=== PATIENT | female | born 1985 | race African-American/Black ===

== ENCOUNTER → 2023-03-31 | Outpatient (CLI) | payer SELFPAY ==
[2023-03-31 20:45] LABS: Basophils # (A) 0.05 X 10*3/uL (0.00-0.10); Basophils % (A) 0.9 %; Eosinophils # (A) 0.18 X 10*3/uL (0.04-0.35); Eosinophils % (A) 3.1 %; HCT 36.3 % (37.2-46.3); HGB 11.9 d/dL (12.0-15.0); Lymphocytes # (A) 2.57 X 10*3/uL (0.90-5.00); MCH 29.8 pg (27.0-32.0); MCHC 32.8 d/dL (32.0-37.0); MCV 90.8 FL (80.0-97.0); Mean Platelet Volume 10.1 FL (9.5-12.2); Monocytes # (A) 0.62 X 10*3/uL (0.20-1.00); Monocytes % (A) 10.6 %; NRBC Per 100 WBC 0 X 10*3/uL (0.00-0.01); Neutrophils # (A) 2.39 X 10*3/uL (1.80-7.70); Neutrophils % (A) 40.9 %; Platelet Count 330 X 10*3/uL (140-440); RDW 13.8 % (11.5-14.5); WBC 5.84 X 10*3/uL (4.50-10.00)
[2023-04-01 05:43] LABS: Appearance,Urine Clear (Clear); Bilirubin,Urine Negative (Negative); Blood,Urine Moderate (Negative); Color,Urine Yellow (Yellow); Ketones,Urine Negative (Negative); Nitrite,Urine Negative (Negative); Specific Gravity,Urine 1.021 (1.001-1.030); Urobilinogen,Urine 0.2 E.U./DL
[2023-04-01 05:45] LABS: Blood Urea Nitrogen 15.2 mg/dL (9.0-27.0); Calcium 9.2 mg/dL (8.7-10.3); Carbon Dioxide 24.3 mmol/L (21.6-31.8); Chloride 104 mmol/L (96-109); Glucose 69 mg/dL (70-110); Potassium 4.7 mmol/L (3.5-5.5); Sodium 138 mmol/L (135-145)
[2023-04-01 05:51] LABS: Bacteria,Urine Trace
== END | disposition home or self-care (01) ==
LOC: LABPAT 16:09
PROVIDERS: ATTEND Urology
DX: Z01.812 Encounter for preprocedural laboratory examination (principal); N13.30 Unspecified hydronephrosis; R31.29 Other microscopic hematuria
CPT/HCPCS: 36415; 80048; 81001; 85025

== ENCOUNTER 2023-04-06 08:34 | Day surgery (SDC) | payer SELFPAY ==
--- NOTE | 2023-04-05 16:52 | P.HPIHPCON ---
History of Present Illness H&P Date: 04/05/23 Chief Complaint: Right-sided hydronephrosis This is a 37-year-old female with history of right-sided hydronephrosis secondary to a cystic right-sided ovarian lesion. She underwent a right-sided oophorectomy, but had a persistent hydronephrosis postoperatively subsequently u nderwent stent insertion at an outside hospital. Discussed with her at this time recommend proceeding with right-sided retrograde pyelogram with possible stent removal versus exchange based on the operative findings. Discussed with her if there his evidence of persistent obstruction and she will need a right- sided stent exchange, but if there is resolution of the obstruction then we'll remove the stent.The risk and benefit of the rationale doing surgery was discussed in detail Consent for Procedure: I have explained the operation/procedure to the patient, including the risks, benefits, side effects, alternative therapies (including not receiving the proposed treatment or service), the likelihood of the patient achieving his/her goals, and potential recuperation problems for the procedure/sedation/analgesia, as well as any blood products, if indicated. I also explained to the patient the risks, benefits and side effects of the alternatives, as well as the risks related to not receiving the proposed procedure, care, treatment, or services. Past Medical History Past Medical History: No Reported History Additional Past Medical History / Comment(s): KIDNEY STONES History of Any Multi-Drug Resistant Organisms: None Reported Past Surgical History: Hysterectomy Additional Past Surgical History / Comment(s): CYSTO RIGHT STENT. PARTIAL HYSTERECTOMY Past Anesthesia/Blood Transfusion Reactions: No Reported Reaction Past Psychological History: No Psychological Hx Reported Smoking Status: Current every day smoker Past Alcohol Use History: Occasional Additional Past Alcohol Use History / Comment(s): SMOKES 4-5 CIG/DAY, FOR ABOUT 15 YEAR. Past Drug Use History: Marijuana - Past Family History Mother Family Medical History: No Reported History Medications and Allergies Home Medications Medication Instructions Recorded Confirmed Type Tamsulosin HCl [Flomax] 0.4 mg PO DAILY 04/01/23 04/01/23 History Sulfamethox-Tmp 800-160Mg [Bactrim 1 tab PO Q12HR 04/05/23 04/05/23 History DS 800-160 mg] Allergies Allergy/AdvReac Type Severity Reaction Status Date / Time Penicillins AdvReac Unknown Verified 04/01/23 15:46 Childhood Surgical - Exam - General no distress, moderate pain - Eyes normal ocular movement, no pale - ENT normal nares, normal mucosa - Respiratory normal expansion, normal respiratory effort - Abdomen Abdomen: soft, non tender - Psychiatric oriented to time, oriented to person, oriented to place Assessment and Plan Assessment: OR for cystoscopy, right retrograde pyelogram, possible stent removal versus exchange
[~2023-04-06 08:34] MED LIST: CIPROFLOXACIN/DEXTROSE PMX 400 MG in DEXTROSE/WATER 1 200ML.BAG IVPB PRN; DEXAMETHASONE SOD PHOSPHATE 4 MG/ML 1 ML VIAL IV ONE; HYDROmorphone 0.5 MG/0.5 ML SYRINGE IVP PRN; LACTATED RINGERS 1,000 ML IV SCH; LIDOCAINE 1% (10MG/ML) FOR IV START INTRADERMA PRN; ONDANSETRON 4 MG/2 ML VIAL IVP ONE; droPERidol 5 MG/2 ML VIAL IVP ONE
[2023-04-06] MEDS ORDERED: fentaNYL (PF) 50 MCG/ML 2 ML AMP ONE (09:35)
[2023-04-06] MEDS ORDERED: LIDOCAINE 1% INJ 10MG/ML (20 ML MDV) ONE (09:35)
[2023-04-06] MEDS ORDERED: PROPOFOL 10 MG/ML 20 ML VIAL IV ONE (09:35)
[2023-04-06] MEDS ORDERED: MIDAZOLAM 2 MG/2 ML VIAL ONE (09:35)
[2023-04-06] MEDS ORDERED: IOPAMIDOL-370 50ML BTL MISCELLANE ONE (09:40)
[2023-04-06 10:36] VITALS: TEMP 97.1
--- NOTE | 2023-04-06 10:40 | P.OP ---
Date of Procedure: 04/06/23 Preoperative Diagnosis: Right hydronephrosis Postoperative Diagnosis: Same Procedure(s) Performed: Cystoscopy, right ureteroscopy, retrograde pyelogram and stent exchange Implants: 6-[place] by 24 cm stent in the right ureter Anesthesia: MARCEL Surgeon: Oniel Tony Estimated Blood Loss (ml): 1 Pathology: none sent Condition: stable Disposition: PACU Indications for Procedure: This is a 37-year-old female with history of right-sided hydronephrosis seco ndary to a cystic right-sided ovarian lesion. She underwent a right-sided oophorectomy, but had a persistent hydronephrosis postoperatively subsequently underwent stent insertion at an outside hospital. Discussed with her at this time recommend proceeding with right-sided retrograde pyelogram with possible stent removal versus exchange based on the operative findings. Discussed with her if there his evidence of persistent obstruction and she will need a right- sided stent exchange, but if there is resolution of the obstruction then we'll remove the stent.The risk and benefit of the rationale doing surgery was discussed in detail Description of Procedure: Patient brought to the operating room, general anesthesia was induced. She was prepped and draped in sterile fashion and placed in dorsal lithotomy position. Cystoscopy fitted with a 21-[place] sheath was inserted per urethra, cystoscopy was performed which showed no abnormality within the bladder. At this time the stent was removed intact. Next a 6-[place] open-ended catheter was advanced through the scope and the right ureteral orifice was intubated using a 6-[place] open-ended catheter, retrograde pyelogram was performed which showed a slight narrowing at the distal ureter but no filling defect or hydronephrosis was appreciated. At this time the catheter was removed and delayed images was obtained. At this point no contrast was draining past the distal ureter approximately 3-4 cm from the UVJ, multiple delayed images were obtained but no contrast was draining and on evaluating the ureteral orifice there was no reflux of urine. At this time a semirigid ureteroscope was advanced per urethra and advanced up the right ureteral orifice, the scope was advanced past the area where there was no drainage the ureter was patent and there was no intrinsic narrowing, the scope was advanced to the mid ureter which showed no areas of narrowing or abnormality, pullback ureteroscopy was performed showed no abnormality within the ureter or injury to the ureter. At this time the cystoscope was reinserted and the retrograde was repeated again which showed similar finding no drainage of contrast past the distal ureter approximately 3-4 cm from the UVJ, this is concerning for either an aperistaltic component of the ureter or extrinsic compression. At this time a wire was advanced through. A u reteral stent was passed over the wire, the proximal curl was visualized on fluoroscopy and distal curl was visualized and cystoscope. Hydronephrotic drip was seen from the stent. The bladder was emptied at the end of the case. At this time we will discuss the patient with the patient the option of doing a ureteral reimplant to address her ureteral obstruction
--- NOTE | 2023-04-06 10:43 | FL ---
Intraoperative/procedural fluoroscopic services were provided. Total fluoroscopy time is 78.9 seconds with a total of 10 submitted images to PACS. Please see the operative/procedural note for further de tails. DAP: 0.3-73 mGym2
[2023-04-06 11:17] VITALS: RESP 20
[2023-04-06] MEDS ORDERED: HYDROcodone/APAP 7.5-325MG 1 EACH TAB ONE (11:21)
[2023-04-06] MEDS ORDERED: HYDROcodone/APAP 7.5-325MG 1 EACH TAB PO ONE (11:23)
[2023-04-06 11:37] VITALS: BP 117/79; PULSE 72
== END 2023-04-06 12:58 | disposition home or self-care (01) ==
LOC: OR 08:34
PROVIDERS: ATTEND Urology
DX: N13.30 Unspecified hydronephrosis (principal); F17.210 Nicotine dependence, cigarettes, uncomplicated; F10.90 Alcohol use, unspecified, uncomplicated; Z79.899 Other long term (current) drug therapy; Z80.0 Family history of malignant neoplasm of digestive organs; Z90.710 Acquired absence of both cervix and uterus; Z98.890 Other specified postprocedural states
CPT/HCPCS: 81025; 74420; 52332; C2625; C1758; C1769; J2250; J1100; J2405; J2001; J3010; J0744; J2704; Q9967

== ENCOUNTER 2023-04-23 00:17 | Emergency (ER) | payer OTHER ==
[2023-04-23] MEDS ORDERED: ONDANSETRON 4 MG/2 ML VIAL IVP STA (01:31)
[2023-04-23] MEDS ORDERED: KETOROLAC 15 MG/ML 1 ML VIAL IVP STA (01:31)
[2023-04-23] MEDS ORDERED: SODIUM CHLORIDE 0.9% 1,000 ML IV ONE (01:31)
[2023-04-23 03:15] LABS: ALT 28 U/L (4-34); AST 26 U/L (14-36); African American GFR (CKD) 88 (>60 ml/min/1.73 sqM); Albumin 3.5 g/dL (3.5-5.0); Alkaline Phosphatase 93 U/L (38-126); Anion Gap 9 mmol/L; Appearance,Urine Clear (Clear); Bilirubin,Urine Negative (Negative); Blood Urea Nitrogen 14 mg/dL (7-17); Blood,Urine Large (Negative); Calcium 8.7 mg/dL (8.4-10.2); Carbon Dioxide 17 mmol/L (22-30); Chloride 111 mmol/L (98-107); Color,Urine Light Yellow; Glucose 89 mg/dL (74-99); Glucose,Urine (UA) Negative (Negative); Ketones,Urine Negative (Negative); Leukocyte Esterase,Urine Large (Negative); Mucus,Urine Rare /hpf; Nitrite,Urine Negative (Negative); Non-African American GFR(CKD) 76 (>60 ml/min/1.73 sqM); PH, Urine 5.5 (5.0-8.0); Potassium 4.6 mmol/L (3.5-5.1); Protein,Urine 1+ (Negative); RBC,Urine >182 /hpf (0-5); Sodium 137 mmol/L (137-145); Specific Gravity,Urine 1.021 (1.001-1.035); Squamous Epithelial Cell,Urine 2 /hpf (0-4); Total Bilirubin 0.3 mg/dL (0.2-1.3); Total Protein 6.4 g/dL (6.3-8.2); Urobilinogen,Urine <2.0 mg/dL (<2.0); WBC,Urine 15 /hpf (0-5)
[2023-04-23 03:16] LABS: Basophils % (A) 1 %; Eosinophils # (A) 0.3 k/uL (0-0.7); Eosinophils % (A) 5 %; HCT 33.5 % (34.0-46.0); HGB 10.6 gm/dL (11.4-16.0); Lymphocytes # (A) 1.9 k/uL (1.0-4.8); Lymphocytes % (A) 39 %; MCH 29.5 pg (25.0-35.0); MCHC 31.7 g/dL (31.0-37.0); MCV 93.2 fL (80.0-100.0); Mean Platelet Volume 7.9; Monocytes # (A) 0.3 k/uL (0-1.0); Monocytes % (A) 6 %; Neutrophils # (A) 2.2 k/uL (1.3-7.7); Neutrophils % (A) 47 %; Platelet Count 203 k/uL (150-450); RBC 3.59 m/uL (3.80-5.40); RDW 13.7 % (11.5-15.5); WBC 4.8 k/uL (3.8-10.6)
[2023-04-23 03:45] VITALS: RESP 17
--- NOTE | 2023-04-23 03:46 | ED ---
General Adult HPI - General Source: patient Mode of arrival: ambulatory Limitations: no limitations <Walker Titus - Last Filed: 04/23/23 03:48> <Steven Reyes - Last Filed: 04/23/23 06:21> - General Chief complaint: Back Pain/Injury Stated complaint: Back pain Time Seen by Provider: 04/23/23 01:15 - History of Present Illness Initial comments: 37-year-old female presenting with chief complaint of right-sided back pain and right lower quadrant pain. Patient recently had a right sided ureteral stent replaced. Patient has history of a large ovarian cyst which caused hydronephrosis, this cyst has since removed but the patient has had remaining hydronephrosis. Patient follows with Dr. Tony patient has been taking her pain medication for the symptoms, but states that she recently ran out. She admits to dysuria. Admits to nausea and vomiting. No fevers or chills. No injury or trauma. (Walker Titus) - Related Data Home Medications Medication Instructions Recorded Confirmed Tamsulosin HCl [Flomax] 0.4 mg PO DAILY 04/01/23 04/06/23 Sulfamethox-Tmp 800-160Mg [Bactrim 1 tab PO Q12HR 04/05/23 04/06/23 DS 800-160 mg] Previous Rx's Medication Instructions Recorded HYDROcodone/APAP 5-325MG [[place] 1 tab PO Q6HR PRN 3 Days #12 tab 04/06/23 5-325] Ketorolac [Toradol] 10 mg PO Q6HR PRN #15 tab 04/06/23 Allergies Allergy/AdvReac Type Severity Reaction Status Date / Time Penicillins AdvReac Unknown Verified 04/23/23 00:22 Childhood Review of Systems ROS Other: All systems not noted in ROS Statement are negative. <Walker Titus - Last Filed: 04/23/23 03:48> ROS Other: All systems not noted in ROS Statement are negative. <Steven Reyes - Last Filed: 04/23/23 06:21> ROS Statement: Those systems with pertinent positive or pertinent negative responses have been documented in the HPI. Past Medical History Past Medical History: No Reported History History of Any Multi-Drug Resistant Organisms: None Reported Additional Past Surgical History / Comment(s): kindey stent Past Psychological History: Depression Smoking Status: Current every day smoker Past Alcohol Use History: None Reported Past Drug Use History: Marijuana <Walker Titus - Last Filed: 04/23/23 03:48> General Exam Limitations: no limitations General appearance: alert, in no apparent distress Head exam: Present: atraumatic, normocephalic, normal inspection Eye exam: Present: normal appearance, EOMI Neck exam: Present: normal inspection, full ROM Respiratory exam: Present: normal lung sounds bilaterally. Absent: respiratory distress, wheezes, rales, rhonchi, stridor Cardiovascular Exam: Present: regular rate, normal rhythm, normal heart sounds. Absent: systolic murmur, diastolic murmur, rubs, gallop, clicks GI/Abdominal exam: Present: soft, tenderness. Absent: distended, guarding, rebound, rigid Back exam: Present: normal inspection, CVA tenderness (R). Absent: CVA tenderness (L) Neurological exam: Present: alert, oriented X3 Psychiatric exam: Present: normal affect, normal mood Skin exam: Present: warm, dry, intact, normal color. Absent: rash <Walker Titus - Last Filed: 04/23/23 03:48> Course Vital Signs 04/23/23 04/23/23 00:19 03:33 Temperature 98.5 F 98.5 F Pulse Rate 90 55 L Respiratory 18 17 Rate Blood Pressure 126/86 108/70 O2 Sat by Pulse 100 100 Oximetry Medical Decision Making - Lab Data Result diagrams: 04/23/23 01:58 04/23/23 01:58 <Walker Titus - Last Filed: 04/23/23 03:48> - Lab Data Result diagrams: 04/23/23 01:58 04/23/23 01:58 <Steven Reyes - Last Filed: 04/23/23 06:21> - Medical Decision Making Was pt. sent in by a medical professional or institution (, [facility]ARY, MARBLE SUPERVISOR, urgent care, hospital, or senior care...) When possible be specific @ -No Did you speak to anyone other than the patient for history (EMS, parent, family, police, friend...)? What history was obtained from this source @ -No Did you review nursing and triage notes (agree or disagree)? Why? @ -I reviewed and agree with nursing and triage notes Were old charts reviewed (outside hosp., previous admission, EMS record, old EKG, old radiological studies, urgent care reports/EKG's, senior care records)? Report findings @ -No old charts were reviewed Differential Diagnosis (chest pain, altered mental status, abdominal pain women, abdominal pain men, vaginal bleeding, weakness, fever, dyspnea, syncope, headache, dizziness, GI bleed, back pain, seizure, CVA, palpatations, mental health, musculoskeletal)? @ - MDM Differential Back Pain: Strain, zoster, cauda equina syndrome, epidural abscess, vertebral osteomyelitis, discitis, fracture, subluxation, disc herniation, DJD, spinal stenosis, dissection, AAA, pancreatitis, peptic ulcer disease, pyelonephritis, kidney stone this is not meant to be an all-inclusive list. EKG interpreted by me (3pts min.). @ -As above X-rays interpreted by me (1pt min.). @ -None done U/S interpreted by me (1pt. min.). @ -None done What testing was considered but not performed or refused? (CT, X-rays, U/S, labs)? Why? @ -None What meds were considered but not given or refused? Why? @ -None Did you discuss the management of the patient with other professionals (professionals i.e. , PA, MARBLE SUPERVISOR, lab, RT, psych nurse, social welfare research worker, salesperson flying squad, teacher, commissioned police officer, family service caseworker)? Give summary @ -No Was smoking cessation discussed for >3mins.? @ -No Was critical care preformed (if so, how long)? @ -No Were there social determinants of health that impacted care today? How? (Homelessness, low income, unemployed, alcoholism, drug addiction, transportation, low edu. Level, literacy, decrease access to med. care, [facility], rehab)? @ -No Was there de-escalation of care discussed even if they declined (Discuss DNR or withdrawal of care, Hospice)? DNR status @ -No What co-morbidities impacted this encounter? (DM, HTN, Smoking, COPD, CAD, Cancer, CVA, ARF, Chemo, Hep., AIDS, mental health diagnosis, sleep apnea, morbid obesity)? @ -None Was patient admitted / discharged? Hospital course, mention meds given and route, prescriptions, significant lab abnormalities, going to OR and other pertinent info. @ -37-year-old female with history of right-sided ureteral stent presenting with chief complaint of right-sided flank pain and right lower quadrant pain. History and physical examination are conducted. Urine shows large blood with greater than 182 RBCs and [address] is pending at this time. Patient is signed out to my attending for further management and disposition. (Walker Titus) - Lab Data Lab Results 04/23/23 04/23/23 04/23/23 Range/Units 01:58 01:58 01:58 WBC 4.8 (3.8-10.6) k/uL RBC 3.59 L (3.80-5.40) m/uL Hgb 10.6 L (11.4-16.0) gm/dL Hct 33.5 L (34.0-46.0) % MCV 93.2 (80.0-100.0) fL MCH 29.5 (25.0-35.0) pg MCHC 31.7 (31.0-37.0) g/dL RDW 13.7 (11.5-15.5) % Plt Count 203 (150-450) k/uL MPV 7.9 Neutrophils % 47 % Lymphocytes % 39 % Monocytes % 6 % Eosinophils % 5 % Basophils % 1 % Neutrophils # 2.2 (1.3-7.7) k/uL Lymphocytes # 1.9 (1.0-4.8) k/uL Monocytes # 0.3 (0-1.0) k/uL Eosinophils # 0.3 (0-0.7) k/uL Basophils # 0.0 (0-0.2) k/uL Sodium (137-145) mmol/L Potassium (3.5-5.1) mmol/L Chloride (98-107) mmol/L Carbon Dioxide (22-30) mmol/L Anion Gap mmol/L BUN (7-17) mg/dL Creatinine (0.52-1.04) mg/dL Est GFR (CKD-EPI)AfAm (>60 ml/min/1.73 sqM) Est GFR (CKD-EPI)NonAf (>60 ml/min/1.73 sqM) Glucose (74-99) mg/dL Calcium (8.4-10.2) mg/dL Total Bilirubin (0.2-1.3) mg/dL AST (14-36) U/L ALT (4-34) U/L Alkaline Phosphatase (38-126) U/L Total Protein (6.3-8.2) g/dL Albumin (3.5-5.0) g/dL Urine Color Light Yellow Urine Appearance Clear (Clear) Urine pH 5.5 (5.0-8.0) Ur Specific [place] 1.021 (1.001-1.035) Urine Protein 1+ H (Negative) Urine Glucose (UA) Negative (Negative) Urine Ketones Negative (Negative) Urine Blood Large H (Negative) Urine Nitrite Negative (Negative) Urine Bilirubin Negative (Negative) Urine Urobilinogen <2.0 (<2.0) mg/dL Ur Leukocyte Esterase Large H (Negative) Urine RBC >182 H (0-5) /hpf Urine WBC 15 H (0-5) /hpf Ur Squamous Epith Cells 2 (0-4) /hpf Urine Mucus Rare H (None) /hpf Urine HCG, Qual Not Detected (Not Detectd) 04/23/23 Range/Units 01:58 WBC (3.8-10.6) k/uL RBC (3.80-5.40) m/uL Hgb (11.4-16.0) gm/dL Hct (34.0-46.0) % MCV (80.0-100.0) fL MCH (25.0-35.0) pg MCHC (31.0-37.0) g/dL RDW (11.5-15.5) % Plt Count (150-450) k/uL MPV Neutrophils % % Lymphocytes % % Monocytes % % Eosinophils % % Basophils % % Neutrophils # (1.3-7.7) k/uL Lymphocytes # (1.0-4.8) k/uL Monocytes # (0-1.0) k/uL Eosinophils # (0-0.7) k/uL Basophils # (0-0.2) k/uL Sodium 137 (137-145) mmol/L Potassium 4.6 (3.5-5.1) mmol/L Chloride 111 H (98-107) mmol/L Carbon Dioxide 17 L (22-30) mmol/L Anion Gap 9 mmol/L BUN 14 (7-17) mg/dL Creatinine 0.96 (0.52-1.04) mg/dL Est GFR (CKD-EPI)AfAm 88 (>60 ml/min/1.73 sqM) Est GFR (CKD-EPI)NonAf 76 (>60 ml/min/1.73 sqM) Glucose 89 (74-99) mg/dL Calcium 8.7 (8.4-10.2) mg/dL Total Bilirubin 0.3 (0.2-1.3) mg/dL AST 26 (14-36) U/L ALT 28 (4-34) U/L Alkaline Phosphatase 93 (38-126) U/L Total Protein 6.4 (6.3-8.2) g/dL Albumin 3.5 (3.5-5.0) g/dL Urine Color Urine Appearance (Clear) Urine pH (5.0-8.0) Ur Specific [place] (1.001-1.035) Urine Protein (Negative) Urine Glucose (UA) (Negative) Urine Ketones (Negative) Urine Blood (Negative) Urine Nitrite (Negative) Urine Bilirubin (Negative) Urine Urobilinogen (<2.0) mg/dL Ur Leukocyte Esterase (Negative) Urine RBC (0-5) /hpf Urine WBC (0-5) /hpf Ur Squamous Epith Cells (0-4) /hpf Urine Mucus (None) /hpf Urine HCG, Qual (Not Detectd) Disposition <Walker Titus - Last Filed: 04/23/23 03:48> Is patient prescribed a controlled substance at d/c from ED?: No Time of Disposition: 06:20 <Steven Reyes - Last Filed: 04/23/23 06:21> Clinical Impression: Postoperative pain Disposition: HOME SELF-CARE Condition: Good Instructions (If sedation given, give patient instructions): Pain Management (ED) Referrals: None,Stated [Primary Care Provider] - 1-2 days
--- NOTE | 2023-04-23 05:46 | CT ---
EXAM: CT Abdomen and Pelvis Without Intravenous Contrast CLINICAL HISTORY: ITS.REASON CT Reason: R flank and RLQ pain TECHNIQUE: Axial computed tomography images of the abdomen and pelvis without intravenous contrast. CTDI is 11.2 mGy and DLP is 610 mGy-cm. This CT exam was performed using one or more of the following dose reduction techniques: automated exposure control, adjustment of the mA and/or kV according to patient size, and/or use of iterative reconstruction technique. COMPARISON: No relevant prior studies available. FINDINGS: Limitations: Limited examination the absence of contrast. Lung bases: Unremarkable. No mass. No consolidation. ABDOMEN: Liver: Unremarkable. Gallbladder and bile ducts: Unremarkable. No calcified stones. No ductal dilation. Pancreas: Unremarkable. No ductal dilation. Spleen: Unremarkable. No splenomegaly. Adrenals: Unremarkable. No mass. Kidneys and ureters: No evidence of collecting system dilatation within the kidneys bilaterally. Asymmetrically smaller right kidney. These may be due to sequelae of prior infection or injury. No obstructing stones. Stomach and bowel: No evidence of bowel obstruction. No mucosal thickening. PELVIS: Appendix: Normal appendix. Bladder: Unremarkable. No stones. Reproductive: Tubal ligation clips noted within the left hemipelvis. Displaced tubal ligation clip is not excluded. Consider OB consultation if there is further concern. ABDOMEN and PELVIS: Intraperitoneal space: Unremarkable. No free air. No significant fluid collection. Bones/joints: Degenerative changes in the spine. No acute fracture. No dislocation. Soft tissues: Unremarkable. Vasculature: Unremarkable. No abdominal aortic aneurysm. Lymph nodes: Unremarkable. No enlarged lymph nodes. Tubes, lines and devices: Patient is status post right double-J ureteral stent with proximal coil in the right renal pelvis and distal coil within the bladder. Mild stranding noted along the course of the stent which may be due to postprocedural changes. Infection is also possible. Consider correlation with laboratory values. IMPRESSION: 1. Patient is status post right double-J ureteral stent with proximal coil in the right renal pelvis and distal coil within the bladder. Mild stranding noted along the course of the stent which may be due to postprocedural changes. Infection is also possible. Consider correlation with laboratory values. 2. No evidence of collecting system dilatation within the kidneys bilaterally. 3. Asymmetrically smaller right kidney. These may be due to sequelae of prior infection or injury. 4. Tubal ligation clips noted within the left hemipelvis. Displaced tubal ligation clip is not excluded. Consider OB consultation if there is further concern. 5. No other acute findings. 6. Incidental findings as described.
[2023-04-23] MEDS ORDERED: IBUPROFEN 600 MG STARTER PACK 4 TAB BTL PO STA (06:19)
[2023-04-23] MEDS ORDERED: ACET/COD 300 MG/30 MG STARTER PACK 6 TAB BTL PO STA (06:19)
[2023-04-23 06:47] VITALS: BP 119/85; PULSE 69; TEMP 98.1
== END 2023-04-23 06:32 | disposition home or self-care (01) ==
LOC: EC 00:17
DX: G89.18 Other acute postprocedural pain (principal); R10.31 Right lower quadrant pain; F17.200 Nicotine dependence, unspecified, uncomplicated; F12.90 Cannabis use, unspecified, uncomplicated; Z80.0 Family history of malignant neoplasm of digestive organs
CPT/HCPCS: 36415; 80053; 85025; 81001; 81025; 87086; 74176; 99284; 96374; 96375; 96361; J2405; J1885

== ENCOUNTER 2023-11-28 10:03 | Emergency (ER) | payer OTHER ==
[2023-11-28 10:55] LABS: Basophils % (A) 1 %; Eosinophils # (A) 0.3 k/uL (0-0.7); Eosinophils % (A) 4 %; HCT 39.1 % (34.0-46.0); HGB 12.4 gm/dL (11.4-16.0); Lymphocytes % (A) 27 %; MCH 30.1 pg (25.0-35.0); MCHC 31.7 g/dL (31.0-37.0); MCV 94.8 fL (80.0-100.0); Mean Platelet Volume 7.3; Monocytes # (A) 0.3 k/uL (0-1.0); Monocytes % (A) 4 %; Neutrophils # (A) 4.7 k/uL (1.3-7.7); Neutrophils % (A) 63 %; Platelet Count 349 k/uL (150-450); RBC 4.12 m/uL (3.80-5.40); RDW 13.7 % (11.5-15.5); WBC 7.5 k/uL (3.8-10.6)
[2023-11-28] MEDS: ONDANSETRON 4 MG/2 ML VIAL IVP STA ×2 (10:56→16:21)
[2023-11-28] MEDS: KETOROLAC 15 MG/ML 1 ML VIAL IVP STA (10:56)
[2023-11-28] MEDS: SODIUM CHLORIDE 0.9% 1,000 ML IV STA ×2 (10:56→13:21)
--- NOTE | 2023-11-28 11:00 | ED ---
Abdominal Pain HPI - General Chief Complaint: Nausea/Vomiting/Diarrhea Stated Complaint: Vomiting Time Seen by Provider: 11/28/23 10:20 Source: patient, RN notes reviewed Mode of arrival: ambulatory Limitations: no limitations - History of Present Illness Initial Comments: This is a 38-year-old female who presents to the emergency department for abdominal pain, nausea, and vomiting. Patient states that this morning she started to develop severe pain in the right lower quadrant and right flank region with associated nausea and vomiting. Last year she was having problems with a cystic lesion on her right ovary that was causing hydronephrosis and she subsequently had to have a stent placed in her right ureter in March of last year. States that they are planning to remove this soon. Follows with Dr. Tony. States that she feels hot and cold but has not measured any fevers. Denies any urinary symptoms. MD Complaint: abdominal pain, flank pain - Related Data Home Medications Medication Instructions Recorded Confirmed Acetaminophen Tab [Tylenol Tab] 1,000 mg PO Q6HR PRN 11/28/23 11/28/23 Previous Rx's Medication Instructions Recorded HYDROcodone/APAP 5-325MG [Josephine 1 tab PO Q6HR PRN 3 Days #12 tab 11/28/23 5-325] Ketorolac [Toradol] 10 mg PO Q6HR PRN #15 tab 11/28/23 Ondansetron Odt [Zofran Odt] 4 mg PO Q8HR PRN #15 tab 11/28/23 Allergies Allergy/AdvReac Type Severity Reaction Status Date / Time Penicillins AdvReac Unknown Verified 11/28/23 14:31 Childhood Review of Systems ROS Statement: Those systems with pertinent positive or pertinent negative responses have been documented in the HPI. ROS Other: All systems not noted in ROS Statement are negative. Past Medical History Past Medical History: No Reported History History of Any Multi-Drug Resistant Organisms: None Reported Additional Past Surgical History / Comment(s): kindey stent Past Psychological History: Depression Smoking Status: Current every day smoker Past Alcohol Use History: None Reported Past Drug Use History: Marijuana General Exam Limitations: no limitations General appearance: alert, in distress Head exam: Present: atraumatic, normocephalic, normal inspection Respiratory exam: Present: normal lung sounds bilaterally. Absent: respiratory distress, wheezes, rales, rhonchi, stridor Cardiovascular Exam: Present: regular rate, normal rhythm, normal heart sounds. Absent: systolic murmur, diastolic murmur, rubs, gallop, clicks GI/Abdominal exam: Present: soft, tenderness (RLQ), normal bowel sounds. Absent: distended Back exam: Present: CVA tenderness (R). Absent: CVA tenderness (L) Neurological exam: Present: alert, oriented X3, CN II-XII intact Psychiatric exam: Present: normal affect, normal mood Skin exam: Present: warm, dry, intact, normal color. Absent: rash Course Vital Signs 11/28/23 11/28/23 11/28/23 10:07 11:07 11:49 Temperature 98.1 F 98.7 F 98.1 F Pulse Rate 83 68 60 Respiratory 20 16 16 Rate Blood Pressure 123/87 120/73 124/90 O2 Sat by Pulse 99 100 100 Oximetry 11/28/23 11/28/23 11/28/23 13:09 14:13 15:34 Temperature 98.1 F 98.4 F 98.2 F Pulse Rate 55 L 65 66 Respiratory 18 16 16 Rate Blood Pressure 96/53 107/61 120/88 O2 Sat by Pulse 100 94 L 100 Oximetry 11/28/23 16:23 Temperature 98.0 F Pulse Rate 61 Respiratory 18 Rate Blood Pressure 120/58 O2 Sat by Pulse 100 Oximetry Medical Decision Making - Medical Decision Making This is a 38 year old female who presents to the emergency department for abdominal pain. Was pt. sent in by a medical professional or institution? @ -No Did you speak to anyone other than the patient for history? @ -No Did you review nursing and triage notes? @ -Yes, and I agree, it is accurate with regards to the patient's symptoms. Were old charts reviewed? @ -No Differential Diagnosis? @ -Differential Abdominal Pain Women: Appendicitis, Cholecystitis, diverticulosis, ischemic bowel, pancreatitis, hepatitis, UTI, gastroenteritis, AAA, incarcerated hernia, bowel obstruction, constipation, inflammatory bowel, hepatitis, peptic ulcer disease, splenic infarction, perforated viscus, vulvitis, ovarian torsion, PID, kidney stone, placenta abruption, this is not meant to be an all-inclusive list EKG interpreted by me (3pts min.)? @ -Not obtained X-rays interpreted by me (1pt min.)? @ -Not obtained CT interpreted by me (1pt min.)? @ -CT scan of the abdomen and pelvis obtained. My interpretation identifies no evidence of hydronephrosis. U/S interpreted by me (1pt. min.)? @ -Pelvic ultrasound obtained. My interpretation identifies no evidence of an ovarian torsion. What testing was considered but not performed? (CT, X-rays, U/S, labs)? Why? @ -None What meds were considered but not given? Why? @ -None Did you discuss the management of the patient with other professionals? @ -No Did you reconcile home meds? @ -No Was smoking cessation discussed for >3mins.? @ -No Was critical care preformed (if so, how long)? @ -No Were there social determinants of health that impacted care today? How? (Homelessness, low income, unemployed, alcoholism, drug addiction, transportation, low edu. Level, literacy, decrease access to med. care, [facility], rehab)? @ -No Was there de-escalation of care discussed even if they declined? (Discuss DNR or withdrawal of care, Hospice)? @ -No What co-morbidities impacted this encounter? (DM, HTN, Smoking, COPD, CAD, Cancer, CVA, Hep., AIDS, mental health diagnosis, sleep apnea, morbid obesity)? @ -Hydronephrosis Was patient admitted / discharged? @ -Discharged. Lab work unremarkable. Urinalysis not suggestive of infection. We initially proceeded with a CT scan of the abdomen and pelvis to evaluate for a problem related to the ureter or stent. The stent was shown to be in appropriate position without evidence of hydronephrosis. She also had a normal- appearing appendix. However, she had an asymmetrically enlarged right ovary with an ovarian cyst measuring up to 4.7 cm. Pelvic ultrasound was subsequently obtained. This demonstrates a multicystic right ovary measuring up to 5.1 cm. There is appropriate arterial and venous blood flow waveforms without evidence of ovarian torsion. Patient's symptoms were well-controlled in the emergency department and she was tolerating oral intake. Discussed with the patient that given the size of the cyst she is at higher risk for ovarian torsion. She was given information for follow-up with [facility] and advised to contact them for an appointment. Toradol and Zofran prescribed for symptomatic management. Patient discharged home in stable condition. Undiagnosed new problem with uncertain prognosis? @ -None Drug Therapy requiring intensive monitoring for toxicity (Heparin, Nitro, Insulin, Cardizem)? @ -None Were any procedures done? @ -None Diagnosis/symptom? @ -Right ovarian cyst Acute, or Chronic, or Acute on Chronic? @ -Acute Uncomplicated (without systemic symptoms) or Complicated (systemic symptoms)? @ -Uncomplicated Side effects of treatment? @ -None Exacerbation, Progression, or Severe Exacerbation] @ -Not applicable Poses a threat to life or bodily function? @ -No Return precautions reviewed in depth, the patient is instructed to return to the emergency department with any new, worsening, or concerning symptoms. Patient verbalized understanding. This case was discussed in detail with the attending ED physician, Dr. Smith. Presentation, findings, and treatment plan discussed in detail as well. - Lab Data Result diagrams: 11/28/23 10:48 11/28/23 10:48 Lab Results 11/28/23 11/28/23 11/28/23 Range/Units 10:48 10:48 10:48 WBC 7.5 (3.8-10.6) k/uL RBC 4.12 (3.80-5.40) m/uL Hgb 12.4 (11.4-16.0) gm/dL Hct 39.1 (34.0-46.0) % MCV 94.8 (80.0-100.0) fL MCH 30.1 (25.0-35.0) pg MCHC 31.7 (31.0-37.0) g/dL RDW 13.7 (11.5-15.5) % Plt Count 349 (150-450) k/uL MPV 7.3 Neutrophils % 63 % Lymphocytes % 27 % Monocytes % 4 % Eosinophils % 4 % Basophils % 1 % Neutrophils # 4.7 (1.3-7.7) k/uL Lymphocytes # 2.0 (1.0-4.8) k/uL Monocytes # 0.3 (0-1.0) k/uL Eosinophils # 0.3 (0-0.7) k/uL Basophils # 0.0 (0-0.2) k/uL Sodium 140 (137-145) mmol/L Potassium 4.5 (3.5-5.1) mmol/L Chloride 109 H (98-107) mmol/L Carbon Dioxide 26 (22-30) mmol/L Anion Gap 5 mmol/L BUN 12 (7-17) mg/dL Creatinine 1.04 (0.52-1.04) mg/dL Est GFR (CKD-EPI)AfAm 80 (>60 ml/min/1.73 sqM) Est GFR (CKD-EPI)NonAf 69 (>60 ml/min/1.73 sqM) Glucose 114 H (74-99) mg/dL Plasma Lactic Acid Nash 1.5 (0.7-2.0) mmol/L Calcium 9.2 (8.4-10.2) mg/dL Total Bilirubin 0.5 (0.2-1.3) mg/dL AST 22 (14-36) U/L ALT 15 (4-34) U/L Alkaline Phosphatase 79 (38-126) U/L Total Protein 7.0 (6.3-8.2) g/dL Albumin 4.1 (3.5-5.0) g/dL Amylase 71 (30-110) U/L Lipase 95 (23-300) U/L HCG, Qual Not Detected Urine Color Urine Appearance (Clear) Urine pH (5.0-8.0) Ur Specific [place] (1.001-1.035) Urine Protein (Negative) Urine Glucose (UA) (Negative) Urine Ketones (Negative) Urine Blood (Negative) Urine Nitrite (Negative) Urine Bilirubin (Negative) Urine Urobilinogen (<2.0) mg/dL Ur Leukocyte Esterase (Negative) Urine RBC (0-5) /hpf Urine WBC (0-5) /hpf Ur Squamous Epith Cells (0-4) /hpf Urine Mucus (None) /hpf Urine HCG, Qual (Not Detectd) 11/28/23 11/28/23 Range/Units 15:17 15:17 WBC (3.8-10.6) k/uL RBC (3.80-5.40) m/uL Hgb (11.4-16.0) gm/dL Hct (34.0-46.0) % MCV (80.0-100.0) fL MCH (25.0-35.0) pg MCHC (31.0-37.0) g/dL RDW (11.5-15.5) % Plt Count (150-450) k/uL MPV Neutrophils % % Lymphocytes % % Monocytes % % Eosinophils % % Basophils % % Neutrophils # (1.3-7.7) k/uL Lymphocytes # (1.0-4.8) k/uL Monocytes # (0-1.0) k/uL Eosinophils # (0-0.7) k/uL Basophils # (0-0.2) k/uL Sodium (137-145) mmol/L Potassium (3.5-5.1) mmol/L Chloride (98-107) mmol/L Carbon Dioxide (22-30) mmol/L Anion Gap mmol/L BUN (7-17) mg/dL Creatinine (0.52-1.04) mg/dL Est GFR (CKD-EPI)AfAm (>60 ml/min/1.73 sqM) Est GFR (CKD-EPI)NonAf (>60 ml/min/1.73 sqM) Glucose (74-99) mg/dL Plasma Lactic Acid Nash (0.7-2.0) mmol/L Calcium (8.4-10.2) mg/dL Total Bilirubin (0.2-1.3) mg/dL AST (14-36) U/L ALT (4-34) U/L Alkaline Phosphatase (38-126) U/L Total Protein (6.3-8.2) g/dL Albumin (3.5-5.0) g/dL Amylase (30-110) U/L Lipase (23-300) U/L HCG, Qual Urine Color Yellow Urine Appearance Clear (Clear) Urine pH 5.5 (5.0-8.0) Ur Specific [place] 1.024 (1.001-1.035) Urine Protein Trace H (Negative) Urine Glucose (UA) Negative (Negative) Urine Ketones Negative (Negative) Urine Blood Large H (Negative) Urine Nitrite Negative (Negative) Urine Bilirubin Negative (Negative) Urine Urobilinogen <2.0 (<2.0) mg/dL Ur Leukocyte Esterase Moderate H (Negative) Urine RBC 14 H (0-5) /hpf Urine WBC 4 (0-5) /hpf Ur Squamous Epith Cells 1 (0-4) /hpf Urine Mucus Many H (None) /hpf Urine HCG, Qual Not Detected (Not Detectd) - Radiology Data Radiology results: report reviewed, image reviewed Disposition Clinical Impression: Right ovarian cyst Disposition: HOME SELF-CARE Instructions (If sedation given, give patient instructions): Ovarian Cyst (ED) Additional Instructions: Return to the emergency department with any new, worsening, or concerning symptoms. Take the Toradol with Tylenol as needed for pain relief. If you choose to take the Toradol, do not take any other anti-inflammatories such as ibuprofen, take one or the other. Take the Josephine sparingly when your pain is the most severe and be aware that it may make you drowsy. You can take the Zofran up to every 8 hours as needed for nausea and vomiting. Contact the [facility] office as listed below first thing tomorrow morning. Let them know that you were found to have a multicystic right ovary that was very large putting you at risk for ovarian torsion and they will schedule you for a follow-up a ppointment. Follow up with your primary care provider in 1-2 days. Prescriptions: HYDROcodone/APAP 5-325MG [Josephine 5-325] 1 tab PO Q6HR PRN 3 Days #12 tab PRN Reason: Pain Ketorolac [Toradol] 10 mg PO Q6HR PRN #15 tab PRN Reason: Pain Ondansetron Odt [Zofran Odt] 4 mg PO Q8HR PRN #15 tab PRN Reason: Nausea And Vomiting Is patient prescribed a controlled substance at d/c from ED?: Yes When asked, does pt state using other controlled substances?: No If prescribed controlled substance>3 days was MAPS reviewed?: Prescribed <3 Days Referrals: None,Stated [Primary Care Provider] - 1-2 days Shanell Oneill DO [Doctor of Osteopathic Medicine] - 1-2 days Time of Disposition: 16:14
[2023-11-28] MEDS: HYDROmorphone 0.5 MG/0.5 ML SYRINGE IVP STA ×2 (11:05→15:25)
[2023-11-28 11:07] LABS: ALT 15 U/L (4-34); AST 22 U/L (14-36); African American GFR (CKD) 80 (>60 ml/min/1.73 sqM); Albumin 4.1 g/dL (3.5-5.0); Alkaline Phosphatase 79 U/L (38-126); Amylase 71 U/L (30-110); Anion Gap 5 mmol/L; Blood Urea Nitrogen 12 mg/dL (7-17); Calcium 9.2 mg/dL (8.4-10.2); Carbon Dioxide 26 mmol/L (22-30); Chloride 109 mmol/L (98-107); Glucose 114 mg/dL (74-99); Lipase 95 U/L (23-300); Non-African American GFR(CKD) 69 (>60 ml/min/1.73 sqM); Potassium 4.5 mmol/L (3.5-5.1); Sodium 140 mmol/L (137-145); Total Bilirubin 0.5 mg/dL (0.2-1.3)
[2023-11-28 11:13] LABS: HCG,Qualitative Serum Not Detected
--- NOTE | 2023-11-28 12:05 | CT ---
EXAMINATION TYPE: CT abdomen pelvis wo con CT DLP: 736.6 mGycm, Automated exposure control for dose reduction was used. DATE OF EXAM: 11/28/2023 11:43 AM COMPARISON: 04/23/2023 CLINICAL INDICATION:Female, 38 years old with history of Right flank pain; RT flank pain, vomiting TECHNIQUE: Axial CT abdomen pelvis wo con;Sagittal and coronal reformats were created on a separate workstation. Contrast used: mL of , (none if empty) Oral contrast used: without Oral Contrast (none if empty) FINDINGS: LOWER CHEST: Unremarkable ABDOMEN LIVER: Unremarkable GALLBLADDER AND BILE DUCTS: Unremarkable. PANCREAS: Unremarkable. SPLEEN: Unremarkable. ADRENAL GLANDS: Unremarkable. KIDNEYS AND URETERS: Right ureteral stent with inferior and superior pubic toes appropriately placed. PELVIS BLADDER: Unremarkable REPRODUCTIVE: Right ovarian cyst is poorly visualized due to CT technique and lack of contrast this i s thought to measure up to 4.7 cm. This is asymmetrically enlarged compared to the left. ABDOMEN & PELVIS STOMACH AND BOWEL: No evidence of bowel obstruction. Motion artifact limits evaluation of the bowel. The appendix appears within normal limits. PERITONEUM/RETROPERITONEUM: No evidence of pneumoperitoneum or free fluid. VASCULATURE: No evidence of aortic aneurysm. MUSCULOSKELETAL: No acute osseous abnormalities LYMPH NODES: No gross evidence for lymphadenopathy. SOFT TISSUE/ABDOMINAL WALL: Unremarkable IMPRESSION: 1. Asymmetrically enlarged right ovary with right ovarian cyst measuring up to 4.7 cm. Correlate cli nically for torsion and consideration for pelvic ultrasound with spectral waveforms for arterial veno us flow. 2. Right ureteral stent in appropriate position. No evidence for hydronephrosis. 3. Normal-appearing appendix.
--- NOTE | 2023-11-28 15:00 | US ---
EXAMINATION TYPE: US pelvic complete DATE OF EXAM: 11/28/2023 COMPARISON: Same day CT CLINICAL INDICATION: Female, 38 years old with history of Pelvic pain, right ovarian cyst on CT; Pain , abnormal CT, left oophorectomy TECHNIQUE: Transabdominal (TA). Transabdominal sonographic images of the pelvis were acquired. Pt refused TV- pt unable to fill bladder properly Date of LMP: Today EXAM MEASUREMENTS: Uterus: 9.7 x 4.7 x 5.3 cm Endometrial Stripe: 1.0 cm Right Ovary: 6.1 x 4.8 x 5.0 cm Left Ovary: Surgically absent 1. Uterus: Anteverted Possible fibroid left uterine body= 3.5 x 2.4 x 2.2 cm 2. Endometrium: wnl 3. Right Ovary: Enlarged, cyst with septations= 5.1 x 4.4 x 4.7 cm 4. Left Ovary: Surgically absent Spectral, color and waveform doppler imaging shows good arterial and venous flow within the right o vary; there is no evidence for ovarian torsion. 5. Bilateral Adnexa: wnl 6. Posterior cul-de-sac: wnl IMPRESSION: Multicystic right ovary as seen on prior CT measuring up to 5.1 cm. Appropriate arterial and venous s pectral waveforms to the right ovary. No evidence for ovarian torsion. Large cysts predispose patient s to ovarian torsion within the reach 5.0 cm.
[2023-11-28] MEDS: HYDROmorphone 1 MG/ML 1 ML SYRINGE IVP STA (15:19)
[2023-11-28 15:28] LABS: Appearance,Urine Clear (Clear); Bilirubin,Urine Negative (Negative); Blood,Urine Large (Negative); Color,Urine Yellow; Glucose,Urine (UA) Negative (Negative); Ketones,Urine Negative (Negative); Leukocyte Esterase,Urine Moderate (Negative); Mucus,Urine Many /hpf; Nitrite,Urine Negative (Negative); PH, Urine 5.5 (5.0-8.0); Protein,Urine Trace (Negative); RBC,Urine 14 /hpf (0-5); Specific Gravity,Urine 1.024 (1.001-1.035); Squamous Epithelial Cell,Urine 1 /hpf (0-4); Urobilinogen,Urine <2.0 mg/dL (<2.0); WBC,Urine 4 /hpf (0-5)
[2023-11-28 16:24] VITALS: BP 120/58; PULSE 61; RESP 18; TEMP 98
== END 2023-11-28 16:38 | disposition home or self-care (01) ==
LOC: EC 10:03
DX: N83.201 Unspecified ovarian cyst, right side (principal); N13.30 Unspecified hydronephrosis; F17.200 Nicotine dependence, unspecified, uncomplicated; Z88.0 Allergy status to penicillin
CPT/HCPCS: 36415; 80053; 82150; 83605; 83690; 85025; 81001; 81025; 84703; 93976; 76856; 74176; 99284; 96374; 96375 ×2; 96376 ×2; 96361 ×2; J2405; J1885; J1170

== ENCOUNTER 2023-12-01 15:53 | Emergency (ER) | payer OTHER ==
[2023-12-01 16:11] VITALS: RESP 18
--- NOTE | 2023-12-01 16:37 | ED ---
General Adult HPI - General Source: patient, RN notes reviewed Mode of arrival: ambulatory Limitations: no limitations <Shira Dinh - Last Filed: 12/03/23 19:09> - General Source: RN notes reviewed, old records reviewed Mode of arrival: ambulatory Limitations: no limitations - History of Present Illness -: days(s) Location: left, right, upper extremity, lower extremity Radiation: non-radiation Quality: aching Consistency: intermittent Improves with: none Worsens with: none Associated Symptoms: chest pain Treatments Prior to Arrival: none <Steven Reyes - Last Filed: 01/02/24 00:26> - General Chief complaint: Nausea/Vomiting/Diarrhea Stated complaint: SWELLING IN FEET Time Seen by Provider: 12/01/23 16:36 - History of Present Illness Initial comments: Quick note: 38-year-old female presented to the ER with a chief complaint of bilateral feet swelling. She states woke up this morning and noticed both of her feet were extremely swollen. She also reports bilateral calf tenderness and swelling. She denies any chest pain or shortness of breath. No history of blood clots. Patient occasionally smokes marijuana. (Shira Dinh) This is a 38-year-old female to ER for evaluation of lower extremity pain and swelling. No chest pain currently or shortness of breath patient states the pain is just increasing in the lower extremities (Steven Reyes) - Related Data Home Medications Medication Instructions Recorded Confirmed Acetaminophen Tab [Tylenol Tab] 1,000 mg PO Q6HR PRN 11/28/23 11/28/23 Previous Rx's Medication Instructions Recorded HYDROcodone/APAP 5-325MG [[place] 1 tab PO Q6HR PRN 3 Days #12 tab 11/28/23 5-325] Ketorolac [Toradol] 10 mg PO Q6HR PRN #15 tab 11/28/23 Ondansetron Odt [Zofran Odt] 4 mg PO Q8HR PRN #15 tab 11/28/23 Allergies Allergy/AdvReac Type Severity Reaction Status Date / Time Penicillins AdvReac Unknown Verified 12/01/23 16:11 Childhood Review of Systems ROS Other: All systems not noted in ROS Statement are negative. <Shira Dinh - Last Filed: 12/03/23 19:09> ROS Other: All systems not noted in ROS Statement are negative. <Steven Reyes - Last Filed: 01/02/24 00:26> ROS Statement: Those systems with pertinent positive or pertinent negative responses have been documented in the HPI. Past Medical History Past Medical History: No Reported History History of Any Multi-Drug Resistant Organisms: None Reported Additional Past Surgical History / Comment(s): darcie charles Past Psychological History: Depression Smoking Status: Current every day smoker Past Alcohol Use History: None Reported Past Drug Use History: Marijuana <Shira Dinh - Last Filed: 12/03/23 19:09> General Exam Limitations: no limitations <KemalShira arreola - Last Filed: 12/03/23 19:09> General appearance: alert, in no apparent distress Head exam: Present: atraumatic, normocephalic, normal inspection Eye exam: Present: normal appearance, PERRL, EOMI. Absent: scleral icterus, con junctival injection, periorbital swelling ENT exam: Present: normal exam, mucous membranes moist Neck exam: Present: normal inspection. Absent: tenderness, meningismus, lymphadenopathy Respiratory exam: Present: normal lung sounds bilaterally. Absent: respiratory distress, wheezes, rales, rhonchi, stridor Cardiovascular Exam: Present: regular rate, normal rhythm, normal heart sounds. Absent: systolic murmur, diastolic murmur, rubs, gallop, clicks GI/Abdominal exam: Present: soft, normal bowel sounds. Absent: distended, tenderness, guarding, rebound, rigid Extremities exam: Present: normal inspection, full ROM, normal capillary refill. Absent: tenderness, pedal edema, joint swelling, calf tenderness Back exam: Present: normal inspection Neurological exam: Present: alert, oriented X3, CN II-XII intact Psychiatric exam: Present: normal affect, normal mood Skin exam: Present: warm, dry, intact, normal color. Absent: rash <Steven Reyes - Last Filed: 01/02/24 00:26> - General Exam Comments Initial Comments: Visual Physical Exam Vital signs reviewed General: Well-appearing, nontoxic, no acute distress. Head: Normocephalic, atraumatic Eyes: PERRLA, EOMI ENT: Airway patent Chest: Nonlabored breathing Skin: No visual rash, normal skin tone Neuro: Alert and oriented 3 Musculoskeletal: No gross abnormalities (Shira Dinh) Course <Steven Reyes - Last Filed: 01/02/24 00:26> Vital Signs 12/01/23 12/01/23 12/01/23 16:08 20:00 22:00 Temperature 98.2 F Pulse Rate 85 51 L 61 Respiratory 18 14 16 Rate Blood Pressure 95/64 136/80 132/85 O2 Sat by Pulse 100 99 98 Oximetry 12/01/23 22:54 Temperature 98.0 F Pulse Rate 77 Respiratory 18 Rate Blood Pressure 140/81 O2 Sat by Pulse 96 Oximetry - Reevaluation(s) Reevaluation #1: Medical records reviewed (Steven Reyes) Reevaluation #2: Patient symptoms improved (Steven Reyes) Reevaluation #3: Informed of results and questions answered (Steven Reyes) Reevaluation #4: Was pt. sent in by a medical professional or institution (, PA, STEEL CONSTRUCTION WORKER, urgent care, hospital, or fdc...) When possible be specific @ -no Did you speak to anyone other than the patient for history (EMS, parent, family, police, friend...)? What history was obtained from this source @ -no Did you review nursing and triage notes (agree or disagree)? Why? @ -agree Are old charts reviewed (outside hosp., previous admission, EMS record, old EKG, old radiological studies, urgent care reports/EKG's, fdc records)? Report findings @ -yes Differential Diagnosis (chest pain, altered mental status, abdominal pain women, abdominal pain men, vaginal bleeding, weakness, fever, dyspnea, syncope, headache, dizziness, GI bleed, back pain, seizure, CVA, palpatations, mental health, musculoskeletal)? @ -prior EKG interpreted by me (3pts min.). @ -no X-rays interpreted by me (1pt min.). @ -no CT interpreted by me (1pt min.). @ -no U/S interpreted by me (1pt. min.). @ -yes negative for acute disease What testing was considered but not performed or refused? (CT, X-rays, U/S, labs)? Why? @ -none What meds were considered but not given or refused? Why? @ -none Did you discuss the management of the patient with other professionals (professionals i.e. , PA, STEEL CONSTRUCTION WORKER, lab, RT, psych nurse, social services specialist, appeals and generalist clerk, teacher, driver license reviewing officer, director case)? Give summary @ -no Was smoking cessation discussed for >3mins.? @ -no Was critical care preformed (if so, how long)? @ -no Were there social determinants of health that impacted care today? How? (Homelessness, low income, unemployed, alcoholism, drug addiction, transportation, low edu. Level, literacy, decrease access to med. care, residential, rehab)? @ -none Was there de-escalation of care discussed even if they declined (Discuss DNR or withdrawal of care, Hospice)? DNR status @ -no What co-morbidities impacted this encounter? (DM, HTN, Smoking, COPD, CAD, Cancer, CVA, ARF, Chemo, Hep., AIDS, mental health diagnosis, sleep apnea, morbid obesity)? @ -none Was patient admitted / discharged? Hospital course, mention meds given and route, prescriptions, significant lab abnormalities, going to OR and other pertinent info. @ - 38 female with leg edema nausea vomiting no acute findings here in the ER patient feels well can be discharged home Discharge Undiagnosed new problem with uncertain prognosis? @ -no Drug Therapy requiring intensive monitoring for toxicity (Heparin, Nitro, Insulin, Cardizem)? @ -no Were any procedures done? @ -no Diagnosis/symptom? @ -leg edema nausea vomiting Acute, or Chronic, or Acute on Chronic? @ -Acute Uncomplicated (without systemic symptoms) or Complicated (systemic symptoms)? @ -Complicated Side effects of treatment? @ -no Exacerbation, Progression, or Severe Exacerbation? @ -exacerbation Poses a threat to life or bodily function? How? (Chest pain, USA, [place], pneumonia, PE, COPD, DKA, ARF, appy, cholecystitis, CVA, Diverticulitis, Homicidal, Suicidal, threat to staff... and all critical care pts) @ -yes with DVT and PE (Steven Reyes) Medical Decision Making - Lab Data Result diagrams: 12/01/23 20:35 12/01/23 20:35 <Shira Dinh - Last Filed: 12/03/23 19:09> - Lab Data Result diagrams: 12/01/23 20:35 12/01/23 20:35 - Radiology Data Radiology results: report reviewed (Ultrasound lower extremity venous duplex negative for DVT), image reviewed <Steven Reyes - Last Filed: 01/02/24 00:26> - Medical Decision Making I performed the quick note portion of this chart. Electronically signed by Leslie Dinh PA-C (Shira Dinh) - Lab Data Lab Results 12/01/23 12/01/23 Range/Units 20:35 20:35 WBC 5.8 (3.8-10.6) k/uL RBC 3.59 L (3.80-5.40) m/uL Hgb 10.8 L (11.4-16.0) gm/dL Hct 34.0 (34.0-46.0) % MCV 94.8 (80.0-100.0) fL MCH 30.0 (25.0-35.0) pg MCHC 31.6 (31.0-37.0) g/dL RDW 14.0 (11.5-15.5) % Plt Count 269 (150-450) k/uL MPV 8.1 Neutrophils % 51 % Lymphocytes % 38 % Monocytes % 5 % Eosinophils % 3 % Basophils % 1 % Neutrophils # 3.0 (1.3-7.7) k/uL Lymphocytes # 2.2 (1.0-4.8) k/uL Monocytes # 0.3 (0-1.0) k/uL Eosinophils # 0.2 (0-0.7) k/uL Basophils # 0.0 (0-0.2) k/uL Sodium 140 (137-145) mmol/L Potassium 3.8 (3.5-5.1) mmol/L Chloride 110 H (98-107) mmol/L Carbon Dioxide 24 (22-30) mmol/L Anion Gap 6 mmol/L BUN 13 (7-17) mg/dL Creatinine 1.16 H (0.52-1.04) mg/dL Est GFR (CKD-EPI)AfAm 70 (>60 ml/min/1.73 sqM) Est GFR (CKD-EPI)NonAf 61 (>60 ml/min/1.73 sqM) Glucose 106 H (74-99) mg/dL Calcium 8.8 (8.4-10.2) mg/dL Phosphorus 3.4 (2.5-4.5) mg/dL Magnesium 1.9 (1.6-2.3) mg/dL Total Bilirubin 0.2 (0.2-1.3) mg/dL AST 17 (14-36) U/L ALT 11 (4-34) U/L Alkaline Phosphatase 65 (38-126) U/L NT-Pro-B Natriuret Pep 228 pg/mL Total Protein 5.9 L (6.3-8.2) g/dL Albumin 3.4 L (3.5-5.0) g/dL Disposition <Shira Dinh - Last Filed: 12/03/23 19:09> Is patient prescribed a controlled substance at d/c from ED?: No Time of Disposition: 22:30 <Steven Reyes - Last Filed: 01/02/24 00:26> Clinical Impression: Bilateral leg edema, Nausea & vomiting Disposition: HOME SELF-CARE Condition: Good Instructions (If sedation given, give patient instructions): Acute Nausea and Vomiting (ED), Leg Edema (ED) Referrals: None,Stated [Primary Care Provider] - 1-2 days Forms: Work/School Release
--- NOTE | 2023-12-01 18:04 | US ---
EXAMINATION TYPE: US venous doppler duplex LE DATE OF EXAM: 12/01/2023 5:24 PM COMPARISON: NONE CLINICAL INDICATION: Female, 38 years old with history of calf swelling snd tenderness; Patient state s swelling and calf tenderness that started today. No hx DVT SIDE PERFORMED: Bilateral TECHNIQUE: The lower extremity deep venous system is examined utilizing real time linear array sonog mack with graded compression, doppler sonography and color-flow sonography. VESSELS IMAGED: Common Femoral Vein Deep Femoral Vein Greater Saphenous Vein * Femoral Vein Popliteal Vein Small Saphenous Vein * Proximal Calf Veins (* superficial vessels) Right Leg: Negative for DVT Left Leg: Negative for DVT IMPRESSION: Grayscale, color doppler, spectral doppler imaging performed of the deep veins of the lo wer extremities. There is normal flow, compressibility, vascular waveforms.
[2023-12-01 21:09] LABS: ALT 11 U/L (4-34); AST 17 U/L (14-36); African American GFR (CKD) 70 (>60 ml/min/1.73 sqM); Albumin 3.4 g/dL (3.5-5.0); Alkaline Phosphatase 65 U/L (38-126); Anion Gap 6 mmol/L; Blood Urea Nitrogen 13 mg/dL (7-17); Calcium 8.8 mg/dL (8.4-10.2); Carbon Dioxide 24 mmol/L (22-30); Chloride 110 mmol/L (98-107); Glucose 106 mg/dL (74-99); Magnesium 1.9 mg/dL (1.6-2.3); Non-African American GFR(CKD) 61 (>60 ml/min/1.73 sqM); Phosphorus 3.4 mg/dL (2.5-4.5); Potassium 3.8 mmol/L (3.5-5.1); Sodium 140 mmol/L (137-145); Total Bilirubin 0.2 mg/dL (0.2-1.3); Total Protein 5.9 g/dL (6.3-8.2)
[2023-12-01 21:17] LABS: NT-Pro-B-Type Natriuretic Pept 228 pg/mL
[2023-12-01 21:39] LABS: Basophils % (A) 1 %; Eosinophils # (A) 0.2 k/uL (0-0.7); Eosinophils % (A) 3 %; HGB 10.8 gm/dL (11.4-16.0); Lymphocytes # (A) 2.2 k/uL (1.0-4.8); Lymphocytes % (A) 38 %; MCHC 31.6 g/dL (31.0-37.0); MCV 94.8 fL (80.0-100.0); Mean Platelet Volume 8.1; Monocytes # (A) 0.3 k/uL (0-1.0); Monocytes % (A) 5 %; Neutrophils % (A) 51 %; Platelet Count 269 k/uL (150-450); RBC 3.59 m/uL (3.80-5.40); WBC 5.8 k/uL (3.8-10.6)
[2023-12-01] MEDS: MORPHINE SULFATE 4 MG/ML SYRINGE IVP STA (22:29)
[2023-12-01] MEDS: traMADol 50 MG STARTER PACK 3 TAB BTL PO STA (22:31)
[2023-12-01] MEDS: ONDANSETRON 4 MG/2 ML VIAL IVP STA (22:31)
[2023-12-01] MEDS: ONDANSETRON 4 MG ODT STARTER PACK 2 TAB BTL PO STA (22:31)
[2023-12-01 22:56] VITALS: BP 140/81; PULSE 77; TEMP 98
== END 2023-12-01 23:09 | disposition home or self-care (01) ==
LOC: EC 15:53
DX: R60.0 Localized edema (principal); R11.2 Nausea with vomiting, unspecified; F17.200 Nicotine dependence, unspecified, uncomplicated; Z88.0 Allergy status to penicillin
CPT/HCPCS: 36415; 83880; 80053; 83735; 84100; 85025; 93970; 99285; 96374; 96375; J2270; J2405; S0119

== ENCOUNTER 2024-06-22 10:23 | Emergency (ER) | payer OTHER ==
[2024-06-22 10:37] VITALS: BP 131/90; RESP 18; TEMP 97.9
--- NOTE | 2024-06-22 10:56 | ED ---
General Adult HPI - General Chief complaint: Vaginal Bleeding Stated complaint: Post-op vaginal bleeding Time Seen by Provider: 06/22/24 10:41 Source: patient Mode of arrival: ambulatory Limitations: no limitations - History of Present Illness Initial comments: This is a 38-year-old female with a history of complicated endometriosis with subsequent bilateral oophorectomy presented to the emergency department for blood to be vaginal bleeding. Patient states that she was at school when she had to use the restroom and noticed after she wiped there was blood on the toilet paper. Additionally, states that she experiencing right lower quadrant abdominal pain and right flank pain. She denies dysuria, increased urinary frequency or urgency, nausea, vomiting, diarrhea or constipation. - Related Data Home Medications Medication Instructions Recorded Confirmed Acetaminophen Tab [Tylenol Tab] 1,000 mg PO Q6HR PRN 11/28/23 11/28/23 Previous Rx's Medication Instructions Recorded HYDROcodone/APAP 5-325MG [[place] 1 tab PO Q6HR PRN 3 Days #12 tab 11/28/23 5-325] Ketorolac [Toradol] 10 mg PO Q6HR PRN #15 tab 11/28/23 Ondansetron Odt [Zofran Odt] 4 mg PO Q8HR PRN #15 tab 11/28/23 Allergies Allergy/AdvReac Type Severity Reaction Status Date / Time Penicillins AdvReac Unknown Verified 06/22/24 10:30 Childhood Review of Systems ROS Statement: Those systems with pertinent positive or pertinent negative responses have been documented in the HPI. ROS Other: All systems not noted in ROS Statement are negative. Past Medical History Past Medical History: No Reported History History of Any Multi-Drug Resistant Organisms: None Reported Past Surgical History: Appendectomy Additional Past Surgical History / Comment(s): kindey stent. bilateral oopherectomy Past Psychological History: Depression Smoking Status: Current every day smoker Past Alcohol Use History: None Reported Past Drug Use History: Marijuana General Exam Limitations: no limitations Neck exam: Present: normal inspection. Absent: tenderness, meningismus, lymphadenopathy Respiratory exam: Present: normal lung sounds bilaterally. Absent: respiratory distress, wheezes, rales, rhonchi, stridor Cardiovascular Exam: Present: regular rate, normal rhythm, normal heart sounds. Absent: systolic murmur, diastolic murmur, rubs, gallop, clicks GI/Abdominal exam: Present: soft, tenderness (RLQ, right sided abdomen), normal bowel sounds. Absent: distended, guarding, rebound, rigid Extremities exam: Present: normal inspection, full ROM, normal capillary refill. Absent: tenderness, pedal edema, joint swelling, calf tenderness Back exam: Present: normal inspection, CVA tenderness (R). Absent: CVA tenderness (L) Course Vital Signs 06/22/24 10:30 Temperature 97.9 F Pulse Rate 72 Respiratory 18 Rate Blood Pressure 131/90 O2 Sat by Pulse 100 Oximetry Medical Decision Making - Medical Decision Making Was pt. sent in by a medical professional or institution (, PA, MANAGER OF FINANCIAL, urgent care, hospital, or [place] [facility] facility...) When possible be specific @ -No Did you speak to anyone other than the patient for history (EMS, parent, family, police, friend...)? What history was obtained from this source @ -No Did you review nursing and triage notes (agree or disagree)? Why? @ -I reviewed and agree with nursing and triage notes Were old charts reviewed (outside hosp., previous admission, EMS record, old EKG, old radiological studies, urgent care reports/EKG's, [place] health [facility] facility records)? Report findings @ -No old charts were reviewed Differential Diagnosis (chest pain, altered mental status, abdominal pain women, abdominal pain men, vaginal bleeding, weakness, fever, dyspnea, syncope, headache, dizziness, GI bleed, back pain, seizure, CVA, palpatations, mental health, musculoskeletal)? @ -Differential Vaginal Bleeding: Spontaneous , threatened , molar , ectopic , bloody show, incompetent cervix, abruptioplacenta, placenta previa, uterine rupture, dysfunctional uterine bleeding, hemorrhage, uterine fibroids, this is not meant to be an all-inclusive list. EKG interpreted by me (3pts min.). @ -none X-rays interpreted by me (1pt min.). @ -None done CT interpreted by me (1pt min.). @ -CT of the abdomen pelvis with IV contrast no significant finding on imaging, advised gynecology follow-up U/S interpreted by me (1pt. min.). @ -None done What testing was considered but not performed or refused? (CT, X-rays, U/S, labs)? Why? @ -None What meds were considered but not given or refused? Why? @ -None Did you discuss the management of the patient with other professionals (professionals i.e. , PA, MANAGER OF FINANCIAL, lab, RT, psych nurse, marriage and family social worker, wood calker, teacher, radiation safety officer, manager case)? Give summary @ -No Was smoking cessation discussed for >3mins.? @ -No Was critical care preformed (if so, how long)? @ -No Were there social determinants of health that impacted care today? How? (Homelessness, low income, unemployed, alcoholism, drug addiction, transportation, low edu. Level, literacy, decrease access to med. care, long-term, rehab)? @ -No Was there de-escalation of care discussed even if they declined (Discuss DNR or withdrawal of care, Hospice)? DNR status @ -No What co-morbidities impacted this encounter? (DM, HTN, Smoking, COPD, CAD, Cancer, CVA, ARF, Chemo, Hep., AIDS, mental health diagnosis, sleep apnea, morbid obesity)? @ -None Was patient admitted / discharged? Hospital course, mention meds given and route, prescriptions, significant lab abnormalities, going to OR and other pertinent info. @ -Discharge. 38-year-old female presenting with vaginal bleeding abdominal pain. On my evaluation patient is resting company no signs acute distress. Vitals are stable. Examination remarkable for right lower quadrant right-sided abdominal tenderness and right flank pain to palpation. She was offered pain medication regimen at this time. She will undergo CT imaging in addition to laboratory studies for further evaluation. CBC, CMP unremarkable, hCG qualitative levels not detected. Urinalysis remarkable for large blood with red blood cells, no signs of infection. CT is unremarkable. At this time patient stable for discharge with close follow-up with gynecology evaluation of abnormal uterine bleeding. Discussed with Dr. Snyder Undiagnosed new problem with uncertain prognosis? @ -No Drug Therapy requiring intensive monitoring for toxicity (Heparin, Nitro, Insulin, Cardizem)? @ -No Were any procedures done? @ -No Diagnosis/symptom? @ -Abnormal uterine bleeding Acute, or Chronic, or Acute on Chronic? @ -Acute Uncomplicated (without systemic symptoms) or Complicated (systemic symptoms)? @ -Uncomplicated Side effects of treatment? @ -No Exacerbation, Progression, or Severe Exacerbation? @ -No Poses a threat to life or bodily function? How? (Chest pain, USA, [place], pneumonia, PE, COPD, DKA, ARF, appy, cholecystitis, CVA, Diverticulitis, Homicidal, Suicidal, threat to staff... and all critical care pts) @ -No - Lab Data Result diagrams: 06/22/24 11:11 06/22/24 11:11 Lab Results 06/22/24 06/22/24 06/22/24 Range/Units 11:11 11:11 12:09 WBC 3.8 (3.8-10.6) k/uL RBC 3.89 (3.80-5.40) m/uL Hgb 11.7 (11.4-16.0) gm/dL Hct 36.2 (34.0-46.0) % MCV 93.0 (80.0-100.0) fL MCH 30.0 (25.0-35.0) pg MCHC 32.3 (31.0-37.0) g/dL RDW 13.8 (11.5-15.5) % Plt Count 266 (150-450) k/uL MPV 7.0 Neutrophils % 48 % Lymphocytes % 36 % Monocytes % 9 % Eosinophils % 3 % Basophils % 1 % Neutrophils # 1.8 (1.3-7.7) k/uL Lymphocytes # 1.4 (1.0-4.8) k/uL Monocytes # 0.3 (0-1.0) k/uL Eosinophils # 0.1 (0-0.7) k/uL Basophils # 0.0 (0-0.2) k/uL Sodium 139 (137-145) mmol/L Potassium 4.7 (3.5-5.1) mmol/L Chloride 108 H (98-107) mmol/L Carbon Dioxide 22 (22-30) mmol/L Anion Gap 9 mmol/L BUN 13 (7-17) mg/dL Creatinine 0.97 (0.52-1.04) mg/dL Est GFR (CKD-EPI)AfAm 87 (>60 ml/min/1.73 sqM) Est GFR (CKD-EPI)NonAf 75 (>60 ml/min/1.73 sqM) Glucose 85 (74-99) mg/dL Calcium 9.2 (8.4-10.2) mg/dL Total Bilirubin 0.3 (0.2-1.3) mg/dL AST 24 (14-36) U/L ALT 17 (4-34) U/L Alkaline Phosphatase 83 (38-126) U/L Total Protein 6.8 (6.3-8.2) g/dL Albumin 4.2 (3.5-5.0) g/dL Lipase 118 (23-300) U/L HCG, Qual Not Detected Urine Color Light Yellow Urine Appearance Clear (Clear) Urine pH 5.5 (5.0-8.0) Ur Specific [place] 1.022 (1.001-1.035) Urine Protein Negative (Negative) Urine Glucose (UA) Negative (Negative) Urine Ketones Negative (Negative) Urine Blood Large H (Negative) Urine Nitrite Negative (Negative) Urine Bilirubin Negative (Negative) Urine Urobilinogen <2.0 (<2.0) mg/dL Ur Leukocyte Esterase Negative (Negative) Urine RBC 104 H (0-5) /hpf Urine WBC 1 (0-5) /hpf Ur Squamous Epith Cells 1 (0-4) /hpf Urine Mucus Rare H (None) /hpf Disposition Clinical Impression: Vaginal bleeding, Abnormal uterine bleeding Disposition: HOME SELF-CARE Condition: Good Instructions (If sedation given, give patient instructions): Abnormal (Dysfunctional) Uterine Bleeding (ED) Additional Instructions: Please return to the Emergency Department if symptoms worsen or any other concerns. Is patient prescribed a controlled substance at d/c from ED?: No Referrals: None,Stated [Primary Care Provider] - 1-2 days Time of Disposition: 13:06
[2024-06-22 11:19] LABS: Basophils % (A) 1 %; Eosinophils # (A) 0.1 k/uL (0-0.7); Eosinophils % (A) 3 %; HCT 36.2 % (34.0-46.0); HGB 11.7 gm/dL (11.4-16.0); Lymphocytes # (A) 1.4 k/uL (1.0-4.8); Lymphocytes % (A) 36 %; MCHC 32.3 g/dL (31.0-37.0); Monocytes # (A) 0.3 k/uL (0-1.0); Monocytes % (A) 9 %; Neutrophils # (A) 1.8 k/uL (1.3-7.7); Neutrophils % (A) 48 %; Platelet Count 266 k/uL (150-450); RBC 3.89 m/uL (3.80-5.40); RDW 13.8 % (11.5-15.5); WBC 3.8 k/uL (3.8-10.6)
[2024-06-22 11:42] LABS: HCG,Qualitative Serum Not Detected
[2024-06-22 12:01] LABS: ALT 17 U/L (4-34); AST 24 U/L (14-36); African American GFR (CKD) 87 (>60 ml/min/1.73 sqM); Albumin 4.2 g/dL (3.5-5.0); Alkaline Phosphatase 83 U/L (38-126); Anion Gap 9 mmol/L; Blood Urea Nitrogen 13 mg/dL (7-17); Calcium 9.2 mg/dL (8.4-10.2); Carbon Dioxide 22 mmol/L (22-30); Chloride 108 mmol/L (98-107); Glucose 85 mg/dL (74-99); Lipase 118 U/L (23-300); Non-African American GFR(CKD) 75 (>60 ml/min/1.73 sqM); Potassium 4.7 mmol/L (3.5-5.1); Sodium 139 mmol/L (137-145); Total Bilirubin 0.3 mg/dL (0.2-1.3); Total Protein 6.8 g/dL (6.3-8.2)
[2024-06-22 12:33] LABS: Appearance,Urine Clear (Clear); Bilirubin,Urine Negative (Negative); Blood,Urine Large (Negative); Color,Urine Light Yellow; Glucose,Urine (UA) Negative (Negative); Ketones,Urine Negative (Negative); Leukocyte Esterase,Urine Negative (Negative); Mucus,Urine Rare /hpf; Nitrite,Urine Negative (Negative); PH, Urine 5.5 (5.0-8.0); Protein,Urine Negative (Negative); RBC,Urine 104 /hpf (0-5); Specific Gravity,Urine 1.022 (1.001-1.035); Squamous Epithelial Cell,Urine 1 /hpf (0-4); Urobilinogen,Urine <2.0 mg/dL (<2.0); WBC,Urine 1 /hpf (0-5)
--- NOTE | 2024-06-22 12:53 | CT ---
EXAMINATION TYPE: CT abdomen pelvis w con DATE OF EXAM: 06/22/2024 HISTORY: vaginal bleeding CT DLP: 981.5mGycm Automated Exposure Control for Dose Reduction was Utilized. CONTRAST: CT scan of the abdomen and pelvis is performed with IV Contrast, patient injected with 100ml mL of Is ovue 300. COMPARISON: Prior CT and pelvic ultrasound November 28, 2023. FINDINGS: LUNG BASES: No significant abnormality is appreciated. LIVER/GB: No significant abnormality is appreciated. PANCREAS: No significant abnormality is seen. SPLEEN: No significant abnormality is seen. ADRENALS: No significant abnormality is seen. KIDNEYS: Asymmetric diminished size right kidney is redemonstrated. BOWEL: No significant abnormality is seen. UTERUS/ADNEXA: Persistent anteverted uterus. Surgical clips in the left pelvis thorax image 59 are re demonstrated. Persistent low dense area upper pelvis axial image 58 measuring 4.6 x 2.6 cm could refl ect ovarian cyst or cystic lesions. Findings correlate with prior ultrasound and CT LYMPH NODES: No greater than 1cm abdominal or pelvic lymph nodes are appreciated. OSSEOUS STRUCTURES: No significant abnormality is seen. OTHER: No significant additional abnormality is seen. IMPRESSION: No significant new finding is seen to account for patient's clinical symptoms. No signifi cant change from prior CT. Advise gynecology Evaluation. [facility], , 06/22/2024 12:51 PM
[2024-06-22 14:05] VITALS: PULSE 70
== END 2024-06-22 14:04 | disposition home or self-care (01) ==
LOC: EC 10:23
DX: N93.9 Abnormal uterine and vaginal bleeding, unspecified (principal); N99.820 Postprocedural hemorrhage of a genitourinary system organ or structure following a genitourinary system procedure; F17.200 Nicotine dependence, unspecified, uncomplicated; Z88.0 Allergy status to penicillin
CPT/HCPCS: 36415; 80053; 83690; 85025; 81001; 84703; 74177; 99284; Q9967

== ENCOUNTER 2024-06-22 21:19 | Emergency (ER) | payer OTHER ==
[2024-06-22 21:32] VITALS: RESP 18
[2024-06-22] MEDS: SODIUM CHLORIDE 0.9% 1,000 ML IV STA (22:23)
[2024-06-22] MEDS: ONDANSETRON 4 MG/2 ML VIAL IVP STA (22:23)
[2024-06-22] MEDS: MORPHINE SULFATE 4 MG/ML SYRINGE IVP STA (22:23)
--- NOTE | 2024-06-22 22:32 | ED ---
General Adult HPI - General Chief complaint: Vaginal Bleeding Stated complaint: Vaginal bleeding Time Seen by Provider: 06/22/24 22:00 Source: patient, RN notes reviewed, old records reviewed Mode of arrival: wheelchair - History of Present Illness Initial comments: Patient is a 38-year-old female who was evaluated earlier for vaginal bleeding and abdominal pain. Was discharged home. Has a history of endometriosis, bilateral oophorectomy due to complication from a kidney issue. Currently does not have an CONTAINER COORDINATOR for follow-up. States she has been having some mild vaginal bleeding for the last day with right sided/suprapubic abdominal pain. Endorses some mild nausea. No significant diarrhea or constipation. No dysuria or hematuria. Workup earlier including CT was unremarkable except for some hematuria. States she is still having pain with vaginal bleeding which is why she presents for reevaluation. No new symptoms. - Related Data Home Medications Medication Instructions Recorded Confirmed Acetaminophen Tab [Tylenol Tab] 1,000 mg PO Q6HR PRN 11/28/23 11/28/23 Previous Rx's Medication Instructions Recorded HYDROcodone/APAP 5-325MG [[place] 1 tab PO Q6HR PRN 3 Days #12 tab 11/28/23 5-325] Ketorolac [Toradol] 10 mg PO Q6HR PRN #15 tab 11/28/23 Ondansetron Odt [Zofran Odt] 4 mg PO Q8HR PRN #15 tab 11/28/23 Allergies Allergy/AdvReac Type Severity Reaction Status Date / Time Penicillins AdvReac Unknown Verified 06/22/24 21:26 Childhood Review of Systems ROS Statement: Those systems with pertinent positive or pertinent negative responses have been documented in the HPI. Review of Systems: CONST: Denies fever EYES: Denies blurry vision ENT: Denies nasal congestion C/V: Denies Chest pain RESP: Denies shortness of breath GI: Endorses abdominal pain : Denies dysuria SKIN: Denies rash. MSK: Denies joint pain. NEURO: Denies headache ROS Other: All systems not noted in ROS Statement are negative. Past Medical History Past Medical History: No Reported History History of Any Multi-Drug Resistant Organisms: None Reported Past Surgical History: Appendectomy Additional Past Surgical History / Comment(s): kindey stent. bilateral oopherectomy Past Psychological History: Depression Smoking Status: Former smoker Past Alcohol Use History: None Reported Past Drug Use History: Marijuana General Exam - General Exam Comments Initial Comments: General: Appears in mild to moderate distress secondary to abdominal pain. HEAD: Normal with no signs of head trauma. EYES: EOMI ENT: Hearing grossly intact, normal oropharynx. RESPIRATORY: Clear breath sounds bilaterally. No wheezes, rales, or rhonchi. C/V: Regular rate and rhythm. S1 and S2 auscultated, no edema, peripheral pulses 2+ and intact throughout ABD: Abdomen soft, nondistended. Tender palpation in the suprapubic region. No guarding or rebound tenderness. No peritoneal signs. EXT: Normal range of motion, no obvious deformity SKIN: No rashes or lesions observed on exposed skin. NEURO: Alert and oriented x 4. Course Vital Signs 06/22/24 21:27 Temperature 98.3 F Pulse Rate 69 Respiratory 18 Rate Blood Pressure 135/92 O2 Sat by Pulse 100 Oximetry Medical Decision Making - Medical Decision Making Was pt. sent in by a medical professional or institution (, PA, JUNIOR FINANCIAL ANALYST, urgent care, hospital, or half-way...) When possible be specific @ -No Did you speak to anyone other than the patient for history (EMS, parent, family, police, friend...)? What history was obtained from this source @ -No Did you review nursing and triage notes (agree or disagree)? Why? @ -I reviewed and agree with nursing and triage notes Were old charts reviewed (outside hosp., previous admission, EMS record, old EKG, old radiological studies, urgent care reports/EKG's, half-way records)? Report findings @ -Reviewed chart from earlier this morning which revealed CT with no obvious acute process and normal labs other than hematuria. Differential Diagnosis (chest pain, altered mental status, abdominal pain women, abdominal pain men, vaginal bleeding, weakness, fever, dyspnea, syncope, headache, dizziness, GI bleed, back pain, seizure, CVA, palpatations, mental health, musculoskeletal)? @ -Differential Abdominal Pain Women: Appendicitis, Cholecystitis, diverticulosis, ischemic bowel, pancreatitis, hepatitis, UTI, gastroenteritis, AAA, incarcerated hernia, bowel obstruction, constipation, inflammatory bowel, hepatitis, peptic ulcer disease, splenic infarction, perforated viscus, vulvitis, ovarian torsion, PID, kidney stone, placenta abruption, this is not meant to be an all-inclusive list EKG interpreted by me (3pts min.). @ -None done X-rays interpreted by me (1pt min.). @ -None done CT interpreted by me (1pt min.). @ -None done U/S interpreted by me (1pt. min.). @ -Renal ultrasound reveals no evidence of obstruction. Chronically atrophic right kidney which is noted the patient. Pelvic ultrasound reveals a uterine fibroid which is likely the source of the patient's bleeding and pain. Ovaries absent as expected. What testing was considered but not performed or refused? (CT, X-rays, U/S, labs)? Why? @ -None What meds were considered but not given or refused? Why? @ -None Did you discuss the management of the patient with other professionals (professionals i.e. , PA, JUNIOR FINANCIAL ANALYST, lab, RT, psych nurse, psych social worker, aust[place]ian rules footballer, teacher, tactical deception plans officer, case sealer)? Give summary @ -No Was smoking cessation discussed for >3mins.? @ -No Was critical care preformed (if so, how long)? @ -No Were there social determinants of health that impacted care today? How? (Homelessness, low income, unemployed, alcoholism, drug addiction, transportation, low edu. Level, literacy, decrease access to med. care, senior living, rehab)? @ -No Was there de-escalation of care discussed even if they declined (Discuss DNR or withdrawal of care, Hospice)? DNR status @ -No What co-morbidities impacted this encounter? (DM, HTN, Smoking, COPD, CAD, Cancer, CVA, ARF, Chemo, Hep., AIDS, mental health diagnosis, sleep apnea, mor bid obesity)? @ -Endometriosis, bilateral oophorectomy Was patient admitted / discharged? Hospital course, mention meds given and route, prescriptions, significant lab abnormalities, going to OR and other pertinent info. @ -Based on the patient's presentation and physical exam, presents emergency department with a 1 day history of some vaginal spotting as well as abdominal pain. States that the symptoms did improve but came back again this evening which is why she presents for reevaluation. She received CT and blood work earlier. We will repeat blood work but avoid CT due to her young age and avoidance of excess radiation exposure. We will obtain ultrasound of the pelvis as well as kidneys and bladder. She was in agreement with this plan. She will be symptomatically treated with IV fluids, Zofran, morphine. Ultrasounds negative for any obvious acute renal or bladder process. Patient does have a uterine fibroid. Labs all returned within acceptable limits. Patient still has the hematuria likely from the vaginal bleeding. I discussed results with patient. Pain is improved at this time. Recommended follow-up with CONTAINER COORDINATOR and she will be given follow-up information. She will be given a starter pack and Tylenol 3 as well as Zofran for home. Strict return precautions discussed. She was in agreement this plan. Vital signs remained within acceptable limits. I instructed the patient to follow up with their PCP in the next 1-3 days. I provided contact information for follow up with CONTAINER COORDINATOR. I explained that the patient should return to the emergency department if they experience any worsening symptoms. Strict return precautions were discussed with the patient. The patient expressed understanding of these instructions. I answered all questions that the patient had. The patient was discharged home in good condition with their prescriptions and follow up information. Undiagnosed new problem with uncertain prognosis? @ -No Drug Therapy requiring intensive monitoring for toxicity (Heparin, Nitro, Insulin, Cardizem)? @ -No Were any procedures done? @ -No Diagnosis/symptom? @ -Uterine fibroids, dysfunctional uterine bleeding Acute, or Chronic, or Acute on Chronic? @ -Acute Uncomplicated (without systemic symptoms) or Complicated (systemic symptoms)? @ -Uncomplicated Side effects of treatment? @ -None Exacerbation, Progression, or Severe Exacerbation] @ -No Poses a threat to life or bodily function? @ -Unlikely at this time - Lab Data Result diagrams: 06/22/24 22:16 06/22/24 22:16 Lab Results 06/22/24 06/22/24 06/22/24 Range/Units 22:16 22:16 22:30 WBC 6.6 (3.8-10.6) k/uL RBC 4.17 (3.80-5.40) m/uL Hgb 12.8 (11.4-16.0) gm/dL Hct 38.9 (34.0-46.0) % MCV 93.2 (80.0-100.0) fL MCH 30.7 (25.0-35.0) pg MCHC 33.0 (31.0-37.0) g/dL RDW 13.8 (11.5-15.5) % Plt Count 294 (150-450) k/uL MPV 7.3 Neutrophils % 49 % Lymphocytes % 35 % Monocytes % 8 % Eosinophils % 3 % Basophils % 1 % Neutrophils # 3.2 (1.3-7.7) k/uL Lymphocytes # 2.3 (1.0-4.8) k/uL Monocytes # 0.5 (0-1.0) k/uL Eosinophils # 0.2 (0-0.7) k/uL Basophils # 0.1 (0-0.2) k/uL PT 11.7 (10.0-12.5) sec INR 1.1 (<1.2) APTT 21.8 L (22.0-30.0) sec Sodium 139 (137-145) mmol/L Potassium 4.2 (3.5-5.1) mmol/L Chloride 103 (98-107) mmol/L Carbon Dioxide 25 (22-30) mmol/L Anion Gap 11 mmol/L BUN 17 (7-17) mg/dL Creatinine 1.09 H (0.52-1.04) mg/dL Est GFR (CKD-EPI)AfAm 75 (>60 ml/min/1.73 sqM) Est GFR (CKD-EPI)NonAf 65 (>60 ml/min/1.73 sqM) Glucose 81 (74-99) mg/dL Plasma Lactic Acid [place] (0.7-2.0) mmol/L Calcium 9.7 (8.4-10.2) mg/dL Total Bilirubin 0.3 (0.2-1.3) mg/dL AST 19 (14-36) U/L ALT 18 (4-34) U/L Alkaline Phosphatase 89 (38-126) U/L Total Protein 8.0 (6.3-8.2) g/dL Albumin 4.8 (3.5-5.0) g/dL Amylase 79 (30-110) U/L Lipase 152 (23-300) U/L HCG, Qual Not Detected Urine Color Urine Appearance (Clear) Urine pH (5.0-8.0) Ur Specific [place] (1.001-1.035) Urine Protein (Negative) Urine Glucose (UA) (Negative) Urine Ketones (Negative) Urine Blood (Negative) Urine Nitrite (Negative) Urine Bilirubin (Negative) Urine Urobilinogen (<2.0) mg/dL Ur Leukocyte Esterase (Negative) Urine RBC (0-5) /hpf Urine WBC (0-5) /hpf Ur Squamous Epith Cells (0-4) /hpf Urine Mucus (None) /hpf 06/22/24 06/22/24 Range/Units 22:30 23:31 WBC (3.8-10.6) k/uL RBC (3.80-5.40) m/uL Hgb (11.4-16.0) gm/dL Hct (34.0-46.0) % MCV (80.0-100.0) fL MCH (25.0-35.0) pg MCHC (31.0-37.0) g/dL RDW (11.5-15.5) % Plt Count (150-450) k/uL MPV Neutrophils % % Lymphocytes % % Monocytes % % Eosinophils % % Basophils % % Neutrophils # (1.3-7.7) k/uL Lymphocytes # (1.0-4.8) k/uL Monocytes # (0-1.0) k/uL Eosinophils # (0-0.7) k/uL Basophils # (0-0.2) k/uL PT (10.0-12.5) sec INR (<1.2) APTT (22.0-30.0) sec Sodium (137-145) mmol/L Potassium (3.5-5.1) mmol/L Chloride (98-107) mmol/L Carbon Dioxide (22-30) mmol/L Anion Gap mmol/L BUN (7-17) mg/dL Creatinine (0.52-1.04) mg/dL Est GFR (CKD-EPI)AfAm (>60 ml/min/1.73 sqM) Est GFR (CKD-EPI)NonAf (>60 ml/min/1.73 sqM) Glucose (74-99) mg/dL Plasma Lactic Acid [place] 1.1 (0.7-2.0) mmol/L Calcium (8.4-10.2) mg/dL Total Bilirubin (0.2-1.3) mg/dL AST (14-36) U/L ALT (4-34) U/L Alkaline Phosphatase (38-126) U/L Total Protein (6.3-8.2) g/dL Albumin (3.5-5.0) g/dL Amylase (30-110) U/L Lipase (23-300) U/L HCG, Qual Urine Color Colorless Urine Appearance Clear (Clear) Urine pH 6.5 (5.0-8.0) Ur Specific [place] 1.027 (1.001-1.035) Urine Protein Negative (Negative) Urine Glucose (UA) Negative (Negative) Urine Ketones Negative (Negative) Urine Blood Moderate H (Negative) Urine Nitrite Negative (Negative) Urine Bilirubin Negative (Negative) Urine Urobilinogen <2.0 (<2.0) mg/dL Ur Leukocyte Esterase Negative (Negative) Urine RBC 33 H (0-5) /hpf Urine WBC 3 (0-5) /hpf Ur Squamous Epith Cells 1 (0-4) /hpf Urine Mucus Rare H (None) /hpf Disposition Clinical Impression: Fibroids, Dysfunctional uterine bleeding Disposition: HOME SELF-CARE Condition: Good Instructions (If sedation given, give patient instructions): Abnormal (Dysfunctional) Uterine Bleeding (ED) Additional Instructions: It appears you have uterine fibroids on ultrasound. This can be the source of your abdominal pain as well as abnormal uterine bleeding. Follow-up with CONTAINER COORDINATOR. Use analgesia medications as needed. Return if any worsening symptoms. Follow-up with CONTAINER COORDINATOR in the next 1 to 3 days. Is patient prescribed a controlled substance at d/c from ED?: No Referrals: None,Stated [Primary Care Provider] - 1-2 days Pam Bryan DO [Doctor of Osteopathic Medicine] - 1-2 days Forms: Area PCPs Time of Disposition: 01:00
[2024-06-22 22:37] LABS: Basophils # (A) 0.1 k/uL (0-0.2); Basophils % (A) 1 %; Eosinophils # (A) 0.2 k/uL (0-0.7); Eosinophils % (A) 3 %; HCT 38.9 % (34.0-46.0); HGB 12.8 gm/dL (11.4-16.0); Lymphocytes # (A) 2.3 k/uL (1.0-4.8); Lymphocytes % (A) 35 %; MCH 30.7 pg (25.0-35.0); MCV 93.2 fL (80.0-100.0); Mean Platelet Volume 7.3; Monocytes # (A) 0.5 k/uL (0-1.0); Monocytes % (A) 8 %; Neutrophils # (A) 3.2 k/uL (1.3-7.7); Neutrophils % (A) 49 %; Platelet Count 294 k/uL (150-450); RBC 4.17 m/uL (3.80-5.40); RDW 13.8 % (11.5-15.5); WBC 6.6 k/uL (3.8-10.6)
[2024-06-22 22:44] LABS: ALT 18 U/L (4-34); AST 19 U/L (14-36); African American GFR (CKD) 75 (>60 ml/min/1.73 sqM); Albumin 4.8 g/dL (3.5-5.0); Alkaline Phosphatase 89 U/L (38-126); Amylase 79 U/L (30-110); Anion Gap 11 mmol/L; Blood Urea Nitrogen 17 mg/dL (7-17); Calcium 9.7 mg/dL (8.4-10.2); Carbon Dioxide 25 mmol/L (22-30); Chloride 103 mmol/L (98-107); Glucose 81 mg/dL (74-99); Lipase 152 U/L (23-300); Non-African American GFR(CKD) 65 (>60 ml/min/1.73 sqM); Potassium 4.2 mmol/L (3.5-5.1); Sodium 139 mmol/L (137-145); Total Bilirubin 0.3 mg/dL (0.2-1.3)
[2024-06-22 22:53] LABS: INR 1.1 (<1.2); Prothrombin Time 11.7 sec (10.0-12.5)
[2024-06-22 22:54] LABS: Partial Thromboplastin Time 21.8 sec (22.0-30.0)
[2024-06-22 23:25] LABS: HCG,Qualitative Serum Not Detected
[2024-06-22 23:53] LABS: Appearance,Urine Clear (Clear); Bilirubin,Urine Negative (Negative); Blood,Urine Moderate (Negative); Color,Urine Colorless; Glucose,Urine (UA) Negative (Negative); Ketones,Urine Negative (Negative); Leukocyte Esterase,Urine Negative (Negative); Mucus,Urine Rare /hpf; Nitrite,Urine Negative (Negative); PH, Urine 6.5 (5.0-8.0); Protein,Urine Negative (Negative); RBC,Urine 33 /hpf (0-5); Specific Gravity,Urine 1.027 (1.001-1.035); Squamous Epithelial Cell,Urine 1 /hpf (0-4); Urobilinogen,Urine <2.0 mg/dL (<2.0); WBC,Urine 3 /hpf (0-5)
--- NOTE | 2024-06-23 00:22 | US ---
EXAM: US Retroperitoneal Limited, Renal CLINICAL HISTORY: ITS.REASON US Reason: abd pain, vag bleed TECHNIQUE: Real-time limited ultrasound of the retroperitoneum with image documentation. COMPARISON: No relevant prior studies available. FINDINGS: Right kidney: Unremarkable. Right kidney measures 11.4 cm. No hydronephrosis, mass, cyst, or stone. Right kidney measures 7.9 cm. No hydronephrosis, mass, cyst, or stone. Left kidney: Unremarkable. No stones. No solid mass. No hydronephrosis. Bladder: Normal appearance of the urinary bladder. IMPRESSION: Right kidney is mildly atrophic or developmentally small. Otherwise unremarkable.
--- NOTE | 2024-06-23 00:26 | US ---
EXAM: US Pelvis Transvaginal CLINICAL HISTORY: ITS.REASON US Reason: abd pain, vag bleed TECHNIQUE: Real-time transvaginal pelvic ultrasound with image documentation. Transvaginal imaging was used for better evaluation of the endometrium and adnexa. COMPARISON: No relevant prior studies available. FINDINGS: Uterus/cervix: Uterus measures 8.7 x 3.9 x 5.6 cm. Endometrium measures 13 mm. There are 2 possible left-sided uterine fibroids, the largest 2.5 cm. Right ovary: Right ovary not visualized, surgically absent obscured by bowel gas. Left ovary: Left ovary not visualized, surgically absent obscured by bowel gas. Free fluid: No significant free pelvic fluid. IMPRESSION: 1. Ovaries not visualized, either surgically absent obscured by bowel gas. Correlate with operative history. 2. Possible uterine fibroids.
[2024-06-23] MEDS: MORPHINE SULFATE 4 MG/ML SYRINGE IVP STA (01:18)
[2024-06-23] MEDS: ONDANSETRON 4 MG ODT STARTER PACK 2 TAB BTL PO STA (01:21)
[2024-06-23] MEDS: ACET/COD 300 MG/30 MG STARTER PACK 6 TAB BTL PO STA (01:21)
[2024-06-23 01:31] VITALS: BP 126/87; PULSE 78; TEMP 98
== END 2024-06-23 01:30 | disposition home or self-care (01) ==
LOC: EC 21:19
DX: N93.8 Other specified abnormal uterine and vaginal bleeding (principal); D25.9 Leiomyoma of uterus, unspecified; Z87.891 Personal history of nicotine dependence; Z88.0 Allergy status to penicillin; Z90.49 Acquired absence of other specified parts of digestive tract
CPT/HCPCS: 36415; 80053; 82150; 83605; 83690; 85025; 85610; 85730; 81001; 84703; 76856; 76830; 76770; 99284; 96374; 96375; 96361; 96376; J2270; J2405

== ENCOUNTER 2024-08-21 15:24 | Emergency (ER) | payer OTHER ==
[2024-08-21 15:30] VITALS: RESP 18
--- NOTE | 2024-08-21 16:08 | ED ---
General Adult HPI - General Chief complaint: Extremity Problem,Nontraumatic Stated complaint: leg swelling Time Seen by Provider: 08/21/24 15:32 Source: patient, RN notes reviewed Mode of arrival: wheelchair Limitations: no limitations - History of Present Illness Initial comments: 39-year-old female presents to the emergency department for evaluation of bilateral lower extremity edema that she noticed yesterday. She states that today it has been worse. She reports that both of her legs feel "tight" She elevated her legs last night without any improvement. She does endorse a history of kidney issues. Denies cardiac history. Denies chest pain, shortness of breath, fever. - Related Data Home Medications Medication Instructions Recorded Confirmed No Known Home Medications 08/21/24 08/21/24 Allergies Allergy/AdvReac Type Severity Reaction Status Date / Time Penicillins AdvReac Unknown Verified 08/21/24 17:49 Childhood Review of Systems ROS Statement: Those systems with pertinent positive or pertinent negative responses have been documented in the HPI. ROS Other: All systems not noted in ROS Statement are negative. Past Medical History Past Medical History: No Reported History History of Any Multi-Drug Resistant Organisms: None Reported Past Surgical History: Appendectomy Additional Past Surgical History / Comment(s): kindey stent. bilateral oopherectomy Past Psychological History: Depression Smoking Status: Former smoker Past Alcohol Use History: None Reported Past Drug Use History: Marijuana General Exam Limitations: no limitations General appearance: alert, in no apparent distress Head exam: Present: atraumatic, normocephalic, normal inspection Eye exam: Present: normal appearance, PERRL, EOMI. Absent: scleral icterus, conjunctival injection, periorbital swelling ENT exam: Present: normal exam, mucous membranes moist Neck exam: Present: normal inspection. Absent: tenderness, meningismus, ly mphadenopathy Respiratory exam: Present: normal lung sounds bilaterally. Absent: respiratory distress, wheezes, rales, rhonchi, stridor Cardiovascular Exam: Present: regular rate, normal rhythm, normal heart sounds. Absent: systolic murmur, diastolic murmur, rubs, gallop, clicks GI/Abdominal exam: Present: soft. Absent: distended, tenderness, guarding, rebound, rigid Extremities exam: Present: full ROM, normal capillary refill, other (Bilateral lower extremity edema). Absent: tenderness, joint swelling, calf tenderness Neurological exam: Present: alert, oriented X3 Psychiatric exam: Present: normal affect, normal mood Skin exam: Present: warm, dry, intact, normal color. Absent: rash Course Vital Signs 08/21/24 15:28 Temperature 98 F Pulse Rate 82 Respiratory 18 Rate Blood Pressure 107/74 O2 Sat by Pulse 98 Oximetry Medical Decision Making - Medical Decision Making Was pt. sent in by a medical professional or institution (, MARY, DIRECTOR OF SCIENTIFIC RESEARCH, urgent care, hospital, or residential...) When possible be specific @ -[No] Did you speak to anyone other than the patient for history (EMS, parent, family, police, friend...)? What history was obtained from this source @ -[No] Did you review nursing and triage notes (agree or disagree)? Why? @ -[I reviewed and agree with nursing and triage notes] Were old charts reviewed (outside hosp., previous admission, EMS record, old EKG, old radiological studies, urgent care reports/EKG's, residential records)? Report findings @ -[No old charts were reviewed] Differential Diagnosis (chest pain, altered mental status, abdominal pain women, abdominal pain men, vaginal bleeding, weakness, fever, dyspnea, syncope, headache, dizziness, GI bleed, back pain, seizure, CVA, palpatations, mental health, musculoskeletal)? @ -[Differential Musculoskeletal Muscular strain, contusion, ligament sprain, fracture, arthritis, septic arthritis, bursitis, cellulitis, muscle spasm, nerve compression, DVT, arterial occlusion, herpes zoster, electrolyte abnormality, tumor.... This is not meant to be in all inclusive list] EKG interpreted by me (3pts min.). @ -None X-rays interpreted by me (1pt min.). @ -[None done] CT interpreted by me (1pt min.). @ -[None done] U/S interpreted by me (1pt. min.). @ -[None done] What testing was considered but not performed or refused? (CT, X-rays, U/S, labs)? Why? @ -[None] What meds were considered but not given or refused? Why? @ -[None] Did you discuss the management of the patient with other professionals (professionals i.e. , MARY, DIRECTOR OF SCIENTIFIC RESEARCH, lab, RT, psych nurse, protective services social worker, merchandising specialist, teacher, state patrol officer, porter sample case)? Give summary @ -[No] Was smoking cessation discussed for >3mins.? @ -[No] Was critical care preformed (if so, how long)? @ -[No] Were there social determinants of health that impacted care today? How? (Homelessness, low income, unemployed, alcoholism, drug addiction, transport ation, low edu. Level, literacy, decrease access to med. care, penitentiary, rehab)? @ -[No] Was there de-escalation of care discussed even if they declined (Discuss DNR or withdrawal of care, Hospice)? DNR status @ -[No] What co-morbidities impacted this encounter? (DM, HTN, Smoking, COPD, CAD, Cancer, CVA, ARF, Chemo, Hep., AIDS, mental health diagnosis, sleep apnea, morbid obesity)? @ -[None] Was patient admitted / discharged? Hospital course, mention meds given and route, prescriptions, significant lab abnormalities, going to OR and other pertinent info. @ -[hospital course] Undiagnosed new problem with uncertain prognosis? @ -[No] Drug Therapy requiring intensive monitoring for toxicity (Heparin, Nitro, Insulin, Cardizem)? @ -[No] Were any procedures done? @ -[No] Diagnosis/symptom? @ -[default] Acute, or Chronic, or Acute on Chronic? @ -[default] Uncomplicated (without systemic symptoms) or Complicated (systemic symptoms)? @ -[default] Side effects of treatment? @ -[No] Exacerbation, Progression, or Severe Exacerbation? @ -[No] Poses a threat to life or bodily function? How? (Chest pain, [place], [place], pneumonia, PE, COPD, DKA, ARF, appy, cholecystitis, CVA, Diverticulitis, Homicidal, Suicidal, threat to staff... and all critical care pts) @ -[No] - Lab Data Result diagrams: 08/21/24 16:26 08/21/24 16: Lab Results 08/21/24 08/21/24 08/21/24 Range/Units 16:18 16:18 16:26 WBC 7.8 (3.8-10.6) k/uL RBC 3.58 L (3.80-5.40) m/uL Hgb 10.3 L (11.4-16.0) gm/dL Hct 33.1 L (34.0-46.0) % MCV 92.5 (80.0-100.0) fL MCH 28.8 (25.0-35.0) pg MCHC 31.2 (31.0-37.0) g/dL RDW 14.3 (11.5-15.5) % Plt Count 302 (150-450) k/uL MPV 7.4 Neutrophils % 65 % Lymphocytes % 23 % Monocytes % 5 % Eosinophils % 4 % Basophils % 0 % Neutrophils # 5.1 (1.3-7.7) k/uL Lymphocytes # 1.8 (1.0-4.8) k/uL Monocytes # 0.4 (0-1.0) k/uL Eosinophils # 0.3 (0-0.7) k/uL Basophils # 0.0 (0-0.2) k/uL Sodium (137-145) mmol/L Potassium (3.5-5.1) mmol/L Chloride (98-107) mmol/L Carbon Dioxide (22-30) mmol/L Anion Gap mmol/L BUN (7-17) mg/dL Creatinine (0.52-1.04) mg/dL Est GFR (CKD-EPI)AfAm (>60 ml/min/1.73 sqM) Est GFR (CKD-EPI)NonAf (>60 ml/min/1.73 sqM) Glucose (74-99) mg/dL Calcium (8.4-10.2) mg/dL Magnesium (1.6-2.3) mg/dL Total Bilirubin (0.2-1.3) mg/dL AST (14-36) U/L ALT (4-34) U/L Alkaline Phosphatase (38-126) U/L NT-Pro-B Natriuret Pep pg/mL Total Protein (6.3-8.2) g/dL Albumin (3.5-5.0) g/dL Urine Color Colorless Urine Appearance Clear (Clear) Urine pH 5.5 (5.0-8.0) Ur Specific Gilchrist 1.010 (1.001-1.035) Urine Protein Negative (Negative) Urine Glucose (UA) Negative (Negative) Urine Ketones Negative (Negative) Urine Blood Negative (Negative) Urine Nitrite Negative (Negative) Urine Bilirubin Negative (Negative) Urine Urobilinogen <2.0 (<2.0) mg/dL Ur Leukocyte Esterase Small H (Negative) Urine RBC 1 (0-5) /hpf Urine WBC 2 (0-5) /hpf Ur Squamous Epith Cells 2 (0-4) /hpf Hyaline Casts 1 (0-2) /lpf Urine Mucus Rare H (None) /hpf Urine HCG, Qual Not Detected (Not Detectd) 08/21/24 Range/Units 16:26 WBC (3.8-10.6) k/uL RBC (3.80-5.40) m/uL Hgb (11.4-16.0) gm/dL Hct (34.0-46.0) % MCV (80.0-100.0) fL MCH (25.0-35.0) pg MCHC (31.0-37.0) g/dL RDW (11.5-15.5) % Plt Count (150-450) k/uL MPV Neutrophils % % Lymphocytes % % Monocytes % % Eosinophils % % Basophils % % Neutrophils # (1.3-7.7) k/uL Lymphocytes # (1.0-4.8) k/uL Monocytes # (0-1.0) k/uL Eosinophils # (0-0.7) k/uL Basophils # (0-0.2) k/uL Sodium 137 (137-145) mmol/L Potassium 4.0 (3.5-5.1) mmol/L Chloride 103 (98-107) mmol/L Carbon Dioxide 28 (22-30) mmol/L Anion Gap 6 mmol/L BUN 16 (7-17) mg/dL Creatinine 1.04 (0.52-1.04) mg/dL Est GFR (CKD-EPI)AfAm 79 (>60 ml/min/1.73 sqM) Est GFR (CKD-EPI)NonAf 69 (>60 ml/min/1.73 sqM) Glucose 89 (74-99) mg/dL Calcium 9.5 (8.4-10.2) mg/dL Magnesium 1.7 (1.6-2.3) mg/dL Total Bilirubin 0.3 (0.2-1.3) mg/dL AST 43 H (14-36) U/L ALT 55 H (4-34) U/L Alkaline Phosphatase 85 (38-126) U/L NT-Pro-B Natriuret Pep 86 pg/mL Total Protein 6.5 (6.3-8.2) g/dL Albumin 3.6 (3.5-5.0) g/dL Urine Color Urine Appearance (Clear) Urine pH (5.0-8.0) Ur Specific Gilchrist (1.001-1.035) Urine Protein (Negative) Urine Glucose (UA) (Negative) Urine Ketones (Negative) Urine Blood (Negative) Urine Nitrite (Negative) Urine Bilirubin (Negative) Urine Urobilinogen (<2.0) mg/dL Ur Leukocyte Esterase (Negative) Urine RBC (0-5) /hpf Urine WBC (0-5) /hpf Ur Squamous Epith Cells (0-4) /hpf Hyaline Casts (0-2) /lpf Urine Mucus (None) /hpf Urine HCG, Qual (Not Detectd) Disposition Clinical Impression: Swelling of both lower extremities Disposition: HOME SELF-CARE Condition: Stable Instructions (If sedation given, give patient instructions): Leg Edema (ED) Additional Instructions: Utilize compression stockings, elevate the legs. Follow up with your primary care provider. Return to the emergency department for new or worsening symptoms. Is patient prescribed a controlled substance at d/c from ED?: No Referrals: None,Stated [Primary Care Provider] - 1-2 days
[2024-08-21 16:28] LABS: Appearance,Urine Clear (Clear); Bilirubin,Urine Negative (Negative); Blood,Urine Negative (Negative); Color,Urine Colorless; Glucose,Urine (UA) Negative (Negative); Hyaline Casts,Urine 1 /lpf (0-2); Ketones,Urine Negative (Negative); Leukocyte Esterase,Urine Small (Negative); Mucus,Urine Rare /hpf; Nitrite,Urine Negative (Negative); PH, Urine 5.5 (5.0-8.0); Protein,Urine Negative (Negative); RBC,Urine 1 /hpf (0-5); Squamous Epithelial Cell,Urine 2 /hpf (0-4); Urobilinogen,Urine <2.0 mg/dL (<2.0); WBC,Urine 2 /hpf (0-5)
[2024-08-21 16:57] LABS: ALT 55 U/L (4-34); AST 43 U/L (14-36); African American GFR (CKD) 79 (>60 ml/min/1.73 sqM); Albumin 3.6 g/dL (3.5-5.0); Alkaline Phosphatase 85 U/L (38-126); Anion Gap 6 mmol/L; Blood Urea Nitrogen 16 mg/dL (7-17); Calcium 9.5 mg/dL (8.4-10.2); Carbon Dioxide 28 mmol/L (22-30); Chloride 103 mmol/L (98-107); Glucose 89 mg/dL (74-99); Magnesium 1.7 mg/dL (1.6-2.3); Non-African American GFR(CKD) 69 (>60 ml/min/1.73 sqM); Sodium 137 mmol/L (137-145); Total Bilirubin 0.3 mg/dL (0.2-1.3); Total Protein 6.5 g/dL (6.3-8.2)
[2024-08-21 16:58] LABS: Basophils % (A) 0 %; Eosinophils # (A) 0.3 k/uL (0-0.7); Eosinophils % (A) 4 %; HCT 33.1 % (34.0-46.0); HGB 10.3 gm/dL (11.4-16.0); Lymphocytes # (A) 1.8 k/uL (1.0-4.8); Lymphocytes % (A) 23 %; MCH 28.8 pg (25.0-35.0); MCHC 31.2 g/dL (31.0-37.0); MCV 92.5 fL (80.0-100.0); Mean Platelet Volume 7.4; Monocytes # (A) 0.4 k/uL (0-1.0); Monocytes % (A) 5 %; Neutrophils # (A) 5.1 k/uL (1.3-7.7); Neutrophils % (A) 65 %; Platelet Count 302 k/uL (150-450); RBC 3.58 m/uL (3.80-5.40); RDW 14.3 % (11.5-15.5); WBC 7.8 k/uL (3.8-10.6)
[2024-08-21 17:06] LABS: NT-Pro-B-Type Natriuretic Pept 86 pg/mL
[2024-08-21] MEDS: KETOROLAC 15 MG/ML 1 ML VIAL IVP STA (18:10)
[2024-08-21 18:33] VITALS: BP 103/50; PULSE 63; TEMP 98.1
== END 2024-08-21 18:25 | disposition home or self-care (01) ==
LOC: EC 15:24
DX: M79.89 Other specified soft tissue disorders (principal); Z87.891 Personal history of nicotine dependence
CPT/HCPCS: 36415; 83880; 80053; 83735; 85025; 81001; 81025; 99283; 96374; J1885